=== PATIENT | female | born 1990 | race Hispanic/Latino ===

== ENCOUNTER 2016-10-09 20:25 | Emergency (ER) | payer MEDICAID ==
[2016-10-09 22:20] LABS: Basophils % (Auto) 0.4 % (0.0-1.8); Eosinophils % (Auto) 2.5 % (0.0-4.3); Hematocrit 41.9 % (30.3-42.9); Hemoglobin 13.4 gm/dl (10.1-14.3); Mean Corpuscular HGB Conc 32 % (30-34); Mean Corpuscular Hemoglobin 30 pg (28-32); Mean Corpuscular Volume 92 fl (79-97); Platelet Count 224 K/mm3 (140-440); Red Blood Count 4.54 M/mm3 (3.65-5.03); Red Cell Distribution Width 14.3 % (13.2-15.2); White Blood Count 4.3 K/mm3 (4.5-11.0)
[2016-10-09 22:26] LABS: Bacteria,Urine 1+ /HPF (Negative); Bilirubin,Urine NEG (Negative); Blood,Urine MOD (Negative); Ketones,Urine TR mg/dL (Negative); Leukocyte Esterase,Urine MOD (Negative); Mucus,Urine 3+ /HPF; Nitrite,Urine NEG (Negative); WBC,Urine < 1.0 /HPF (0.0-6.0)
[2016-10-09 22:49] LABS: Alanine Aminotransferase 12 units/L (7-56); Albumin 4.5 g/dL (3.9-5); Albumin/Globulin Ratio 1.4 %; Alkaline Phosphatase 71 units/L (35-129); Anion Gap 20 mmol/L; BUN/Creatinine Ratio 17.14; Bilirubin,Total 0.2 mg/dL (0.1-1.2); Blood Urea Nitrogen 12 mg/dL (7-17); Calcium 9.2 mg/dL (8.4-10.2); Carbon Dioxide 25 mmol/L (22-30); Chloride 105.6 mmol/L (98-107); Glucose 95 mg/dL (65-100); Lipase 33 units/L (13-60); Potassium 4.3 mmol/L (3.6-5.0); Sodium 146 mmol/L (137-145); Total Protein 7.7 g/dL (6.3-8.2)
[2016-10-10 02:13] VITALS: BP 121/71
[2016-10-10] MEDS ORDERED: ZOFRAN ODT PO ONE (03:33)
[2016-10-10] MEDS ORDERED: LIDOCAINE VISCOUS 2% PO ONE (03:33)
[2016-10-10] MEDS ORDERED: TORADOL IM ONE (03:33)
[2016-10-10] MEDS ORDERED: TESSALON PERLES PO ONE (03:33)
[2016-10-10] MEDS ORDERED: MORPHINE IM ONE (03:34)
--- NOTE | 2016-10-10 03:40 | Emergency Department Report ---
HPI - General Chief Complaint: Abdominal Pain Time Seen by Provider: 10/10/16 03:18 - HPI HPI: The patient is a 26 yo female presents for evaluation of chest pain and abdominal pain. The patient reports 2 days of generalized abdominal pain, moderate to severe, cramping in quality, exacerbated with retching, and associated with nausea, multiple episodes of nonbilious emesis, loose watery stools, and decreased appetite. The patient has a secondary complaint of nonproductive cough for the past 2 days, aching in quality bilateral chest wall pain, elicited with coughing, relieved with rest, and moderate in severity burning in quality soreness of throat, exacerbated with swallowing. The patient denies fever, chills, night sweats, dyspnea, hemoptysis, syncope, hematemesis, blood in the stool, dark tarry stool, dysuria, hematuria, flank pain, genital discharge, inability to pass flatus. 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 - Surgical History Additional Surgical History: wisdom teeth - Social History Smoking Status: Current Every Day Smoker Substance Use Type: None - Medications Home Medications: Home Medications Medication Instructions Recorded Confirmed Last Taken Type Benzonatate [Tessalon Perles] 100 mg PO Q8HR #14 capsule 10/10/16 Unknown Rx HYDROcodone/APAP 7.5-325 [[place] 1 each PO Q8HR PRN #12 tablet 10/10/16 Unknown Rx 7.5-325 mg TAB] Ibuprofen [Motrin] 800 mg PO Q8HR PRN #14 tablet 10/10/16 Unknown Rx Ondansetron [Zofran TAB] 4 mg PO Q8HR PRN #20 tablet 10/10/16 Unknown Rx ED Review of Systems ROS: Stated complaint: VOMITING/COUGH/CONGESTION Other details as noted in HPI Constitutional: denies: fever ENT: denies: throat or neck pain Respiratory: reports cough denies: shortness of breath Cardiovascular: denies: chest pain Endocrine: denies unexplained weight loss or gain Gastrointestinal: reports abdominal pain, nausea Genitourinary: denies: dysuria Musculoskeletal: denies: leg swelling Skin: denies: rash Neurological: denies: headache Hematological/Lymphatic: denies: easy bleeding or easy bruising Psych: denies sadness or hopelessness Physical Exam - Physical Exam Vital Signs: Vital Signs 10/09/16 10/10/16 21:05 02:12 Temperature 98.4 F 98.2 F Pulse Rate 67 83 Respiratory 18 12 Rate Blood Pressure 119/73 Blood Pressure 121/71 [Left] O2 Sat by Pulse 100 99 Oximetry Physical Exam: General: well-nourished, well-developed, no acute distress Head: Normocephalic, atraumatic Eyes: normal sclera ENT: Mucous membranes are pink and moist Neck: trachea midline, neck supple, No neck stiffness, no cervical adenopathy Respiratory: Breath sounds equal bilaterally, no wheezing, rales, or rhonchi Cardio: S1 and S2 present, no murmurs, rubs, gallops, capillary refill is brisk Abdomen: Normoactive bowel sounds, soft abdomen, suprapubic and bilateral lower quadrant tenderness to palpation present, no pain at McBurney's point, no rigidity, no guarding or rebound tenderness Chest WALL/Back: tenderness to palpation of the bilat upper chest wall present, no CVA tenderness with percussion Musc: No pitting edema Skin: No rash Neuro: no facial drooping, normal speech Psych: Normal affect ED Course Vital Signs 10/09/16 10/10/16 21:05 02:12 Temperature 98.4 F 98.2 F Pulse Rate 67 83 Respiratory 18 12 Rate Blood Pressure 119/73 Blood Pressure 121/71 [Left] O2 Sat by Pulse 100 99 Oximetry ED Medical Decision Making - Lab Data Result diagrams: 10/09/16 22:07 10/09/16 22:07 - Medical Decision Making The patient was seen and examined by myself. The patient is placed on a classroom monitor and continuous pulse ox. On initial evaluation, the patient was found to be in no distress. Evaluation orders are placed. The patient given Tessalon Perles for her cough, Zofran for nausea, and I'm dose of Toradol for her pain. X-ray of the chest is unremarkable. Lab results were non-concerning including WBC, hemoglobin, hematocrit, electrolytes, renal function, LFTs, lipase, neg preg test, and urinalysis. The patient was reevaluated and reported that their symptoms were markedly improved. The patient is stable for discharge with outpatient follow-up. The patient is given follow-up and return instructions. The patient expressed understanding and agreed with the plan. The patient is discharged in stable condition. Critical care attestation.: If time is entered above; I have spent that time in minutes in the direct care of this critically ill patient, excluding procedure time. ED Disposition Clinical Impression: Acute bilateral lower abdominal pain, Nausea and vomiting in adult, Acute chest pain Disposition: DISCHARGED TO HOME OR SELFCARE Is pt being admited?: No Does the pt Need Aspirin: No Condition: Stable Instructions: Abdominal Pain (ED), Chest Pain (ED), Costochondritis (ED), Gastroenteritis (ED) Referrals: PRIMARY CARE, [Primary Care Provider] - 3-5 Days Time of Disposition: 03:35
--- NOTE | 2016-10-10 07:16 | XRay Report ---
AP CHEST: HISTORY: chest pain AP view of the chest demonstrates a normal mediastinal and cardiac contour with clear lungs and normal bony and soft tissue structures. IMPRESSION: Unremarkable AP chest. No significant change since 04/24/16.
== END 2016-10-10 04:30 | disposition home or self-care (01) ==
LOC: ED 20:25
DX: R10.31 Right lower quadrant pain (principal); R10.32 Left lower quadrant pain; R11.2 Nausea with vomiting, unspecified; R07.9 Chest pain, unspecified; J45.909 Unspecified asthma, uncomplicated; F32.9 Major depressive disorder, single episode, unspecified; F17.200 Nicotine dependence, unspecified, uncomplicated
CPT/HCPCS: 36415; 71010; 80053; 81001; 81025; 83690; 85025; 96372; 99284; J1885; J2270; Q0162

== ENCOUNTER 2016-12-07 12:13 | Emergency (ER) | payer MEDICAID ==
[2016-12-07 13:12] VITALS: BP 103/63
--- NOTE | 2016-12-07 13:58 | XRay Report ---
RIGHT FOOT, 3 views: History: Pain and swelling. The bony architecture is intact. Bony alignment is normal. No soft tissue abnormalities are seen. The joint spaces appear preserved. IMPRESSION: Normal right foot.
== END 2016-12-07 14:57 | disposition left against medical advice (07) ==
LOC: ED 12:13
DX: M79.671 Pain in right foot (principal); Z53.21 Procedure and treatment not carried out due to patient leaving prior to being seen by health care provider

== ENCOUNTER 2016-12-10 16:00 | Emergency (ER) | payer MEDICAID ==
[2016-12-10 16:41] VITALS: BP 121/68
[2016-12-10] MEDS ORDERED: TORADOL IM ONE (17:49)
--- NOTE | 2016-12-10 17:54 | Emergency Department Report ---
HPI - General Chief Complaint: Extremity Injury, Lower Time Seen by Provider: 12/10/16 17:48 - HPI HPI: This is a 26-year-old female presents to the emergency department, dropped off by a uber, with complaint of a one-week history of pain to the right foot. The pain is mostly to the great toe and radiates down to the medial portion of the foot. It occurred just after the patient had 2 sprint away from a pit bull that was chasing her. She denies any known trauma such as twisting her foot and the dog never got to her. However a few hours after this incident the pain began and has been going on since. The patient was seen here at [facility] 3 days ago and had x-rays of the right foot but was unable to stay for the results or to see a physician or PA. She's been taking some ibuprofen for her discomfort without much relief. She is able to bear weight but has a lot of discomfort with doing so. She denies any significant past medical history. 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 - Surgical History Past Surgical History?: Yes Additional Surgical History: wisdom teeth - Social History Smoking Status: Former Smoker Substance Use Type: None - Medications Home Medications: Home Medications Medication Instructions Recorded Confirmed Last Taken Type traMADol [Ultram] 50 mg PO Q6HR PRN #10 tablet 12/10/16 Unknown Rx ED Review of Systems ROS: Stated complaint: RT FOOT SWELLING Other details as noted in HPI Comment: All other systems reviewed and negative Constitutional: denies: chills, fever Eyes: denies: eye pain, eye discharge, vision change ENT: denies: ear pain, throat pain Respiratory: denies: cough, shortness of breath, wheezing Cardiovascular: denies: chest pain, palpitations Gastrointestinal: denies: abdominal pain, nausea, diarrhea Genitourinary: denies: urgency, dysuria, discharge Musculoskeletal: arthralgia. denies: back pain, joint swelling Skin: denies: rash, lesions Neurological: denies: headache, weakness, paresthesias Physical Exam - Physical Exam Vital Signs: Vital Signs 12/10/16 16:38 Temperature 98.5 F Pulse Rate 92 H Respiratory 20 Rate Blood Pressure 121/68 Blood Pressure 121/68 [Left] O2 Sat by Pulse 100 Oximetry Physical Exam: GENERAL: The patient is well-developed well-nourished. HEENT: Normocephalic. Atraumatic. Extraocular motions are intact. Patient has moist mucous membranes. NECK: Supple. Trachea is midline. CHEST/LUNGS: Clear to auscultation. There is no respiratory distress noted. HEART/CARDIOVASCULAR: Regular. There is no tachycardia. There is no gallop rub or murmur. ABDOMEN: Abdomen is soft, nontender. Patient has normal bowel sounds. SKIN: Skin is warm and dry. There is no obvious edema, erythema or ecchymosis to the area of the patient's discomfort. NEURO: The patient is awake, alert, and oriented. The patient is cooperative. The patient has no focal neurologic deficits. The patient has normal speech. MUSCULOSKELETAL: Tenderness to palpation to the right great toe and medial foot but no obvious deformity. Patient has decreased range of motion of the right great toe secondary to pain. Pedal pulses +2 over 4 bilaterally. Cap refill less than 2 seconds. ED Course Vital Signs 12/10/16 16:38 Temperature 98.5 F Pulse Rate 92 H Respiratory 20 Rate Blood Pressure 121/68 Blood Pressure 121/68 [Left] O2 Sat by Pulse 100 Oximetry ED Medical Decision Making - Radiology Data Radiology results: image reviewed X-ray from 12/07/16 of the right foot was read as normal without any obvious fracture, dislocation or acute process. - Medical Decision Making 26 year old female presents with right great toe pain and pain down the right foot since running away from a dog about one week ago. It looks symmetrical with the left foot and there is no obvious swelling or redness or deformity but the patient does have tenderness to palpation and with movement. Previous x- ray from 3 days ago does not show any fracture, dislocation or any acute process and there is been no further trauma since that time. Patient will be given some crutches and a surgical sandal and referral to orthopedist or equal employment opportunity officer. - Differential Diagnosis fracture, dislocation, sprain, strain, neuropathy Critical Care Time: No Critical care attestation.: If time is entered above; I have spent that time in minutes in the direct care of this critically ill patient, excluding procedure time. ED Disposition Clinical Impression: Pain of right great toe, Right foot pain Disposition: DISCHARGED TO HOME OR SELFCARE Is pt being admited?: No Condition: Stable Instructions: Arthralgia (ED) Additional Instructions: I have given you referrals for both an orthopedist and a equal employment opportunity officer. I encourage you to see one of these physicians regarding your toe and foot pain. Return to the emergency department with any worsening of your symptoms or any acute distress. You've been prescribed a medication that is sedating. Therefore this medication cannot be mixed with alcohol, or taken prior to driving, working, or being responsible for children. Prescriptions: traMADol [Ultram] 50 mg PO Q6HR PRN #10 tablet PRN Reason: Pain Referrals: PRIMARY CARE, [Primary Care Provider] - 3-5 Days AVILA OH MD [Staff Physician] - 3-5 Days ROSALBA CENTENO MD [Staff Physician] - 3-5 Days Time of Disposition: 17:56
== END 2016-12-10 17:56 | disposition home or self-care (01) ==
LOC: ED 16:00
DX: M79.671 Pain in right foot (principal); M79.674 Pain in right toe(s); F32.9 Major depressive disorder, single episode, unspecified; J45.909 Unspecified asthma, uncomplicated; Z87.891 Personal history of nicotine dependence
CPT/HCPCS: 96372; 99283; J1885

== ENCOUNTER 2016-12-12 13:02 | Emergency (ER) | payer MEDICAID ==
[2016-12-12 14:53] VITALS: BP 115/74
[2016-12-12 15:22] LABS: Basophils % (Auto) 0.8 % (0.0-1.8); Eosinophils % (Auto) 2.8 % (0.0-4.3); Hematocrit 41.7 % (30.3-42.9); Hemoglobin 13.3 gm/dl (10.1-14.3); Mean Corpuscular HGB Conc 32 % (30-34); Mean Corpuscular Hemoglobin 30 pg (28-32); Mean Corpuscular Volume 94 fl (79-97); Platelet Count 213 K/mm3 (140-440); Red Blood Count 4.45 M/mm3 (3.65-5.03); Red Cell Distribution Width 14.5 % (13.2-15.2); White Blood Count 8.1 K/mm3 (4.5-11.0)
[2016-12-12 15:34] LABS: Alanine Aminotransferase 9 units/L (7-56); Albumin 4.2 g/dL (3.9-5); Albumin/Globulin Ratio 1.5 %; Alkaline Phosphatase 60 units/L (35-129); Anion Gap 17 mmol/L; BUN/Creatinine Ratio 12.85; Bilirubin,Total 0.2 mg/dL (0.1-1.2); Blood Urea Nitrogen 9 mg/dL (7-17); Calcium 9.2 mg/dL (8.4-10.2); Carbon Dioxide 24 mmol/L (22-30); Chloride 102.8 mmol/L (98-107); Glucose 91 mg/dL (65-100); Lipase 45 units/L (13-60); Potassium 3.9 mmol/L (3.6-5.0); Sodium 140 mmol/L (137-145)
[2016-12-12 18:36] LABS: Bacteria,Urine 1+ /HPF (Negative); Bilirubin,Urine NEG (Negative); Blood,Urine NEG (Negative); Ketones,Urine NEG (Negative); Leukocyte Esterase,Urine LG (Negative); Nitrite,Urine NEG (Negative); Protein,Urine <15 mg/dL mg/dL (Negative); Urobilinogen,Urine < 2.0 mg/dL (<2.0)
--- NOTE | 2016-12-13 14:25 | ED Elopement Review ---
ED Pt Elopement review - Results review Lab results: Laboratory Tests 12/12/16 12/12/16 12/12/16 14:56 14:56 16:26 WBC 8.1 RBC 4.45 Hgb 13.3 Hct 41.7 MCV 94 MCH 30 MCHC 32 RDW 14.5 Plt Count 213 Lymph % (Auto) 26.7 [place] % (Auto) 6.3 Eos % (Auto) 2.8 Baso % (Auto) 0.8 Lymph # 2.2 [place] # 0.5 Eos # 0.2 Baso # 0.1 Seg Neutrophils % 63.4 Seg Neutrophils # 5.1 Sodium 140 Potassium 3.9 Chloride 102.8 Carbon Dioxide 24 Anion Gap 17 BUN 9 Creatinine 0.7 Estimated GFR > 60 BUN/Creatinine Ratio 12.85 Glucose 91 Calcium 9.2 Total Bilirubin 0.2 AST 15 ALT 9 Alkaline Phosphatase 60 Total Protein 7.0 Albumin 4.2 Albumin/Globulin Ratio 1.5 Lipase 45 Urine Color Yellow Urine Turbidity Clear Urine pH 6.0 Ur Specific Hoffman 1.012 Urine Protein <15 mg/dl Urine Glucose (UA) Neg Urine Ketones Neg Urine Blood Neg Urine Nitrite Neg Urine Bilirubin Neg Urine Urobilinogen < 2.0 Ur Leukocyte Esterase Lg Urine WBC (Auto) 28.0 H Urine RBC (Auto) 3.0 U Epithel Cells (Auto) 7.0 Urine Bacteria (Auto) 1+ - Call Back decision Pt Call Back Decision: Pt to F/U with PMD
== END 2016-12-13 06:23 | disposition left against medical advice (07) ==
LOC: ED 13:02
DX: R11.10 Vomiting, unspecified (principal); R10.9 Unspecified abdominal pain; Z53.21 Procedure and treatment not carried out due to patient leaving prior to being seen by health care provider
CPT/HCPCS: 36415; 80048; 80053; 81001; 83690; 85025

== ENCOUNTER 2016-12-13 10:13 | Emergency (ER) | payer MEDICAID ==
[2016-12-13 10:27] VITALS: BP 99/70
--- NOTE | 2016-12-13 10:30 | Emergency Department Report ---
Entered by EMILEE SHANE, acting as scribe for SHAD MULTANI NP. Chief Complaint: Abdominal Pain Stated Complaint: ABD PAIN/HOT FLASHES/VOMITING Time Seen by Provider: 12/13/16 10:20 - HPI History of Present Illness: 26 y/o female presents c/o sharp abd pain that started yesterday which she came into [facility] to be treated for. Sx include ear pain, vomiting and dizziness, but pt denies burning with urination or vaginal discharge. 1 episode of vomiting today - ROS Review of Systems: +vomiting +dizziness +ear pain -burning with urination -vaginal discharge - Exam Vital Signs: Vital Signs 12/13/16 10:24 Temperature 98.4 F Pulse Rate 82 Respiratory 16 Rate Blood Pressure 99/70 O2 Sat by Pulse 97 Oximetry Physical Exam: PT is alert and appropriate. pt c/o abd burning, however abd soft and non tender. MSE screening note: Focused history and physical exam performed. Due to findings the following was ordered: reviewed labs from yesterday pt with increased wbc in urine will repeat urine today as pt denies dysuria ED Disposition for MSE Condition: Stable This documentation as recorded by the scribe,EMILEE SHANE,accurately reflects the service I personally performed and the decisions made by me,SHAD MULTANI , MANAGER BILINGUAL.
[2016-12-13 12:24] LABS: Bacteria,Urine 1+ /HPF (Negative); Bilirubin,Urine NEG (Negative); Blood,Urine NEG (Negative); Ketones,Urine NEG (Negative); Leukocyte Esterase,Urine SM (Negative); Mucus,Urine FEW /HPF; Nitrite,Urine NEG (Negative); Protein,Urine <15 mg/dL mg/dL (Negative); Urobilinogen,Urine < 2.0 mg/dL (<2.0)
--- NOTE | 2016-12-13 12:27 | Emergency Department Report ---
ED Abdominal Pain HPI - General Chief Complaint: Urogenital-Female Stated Complaint: ABD PAIN/HOT FLASHES/VOMITING Time Seen by Provider: 12/13/16 10:20 Source: patient Mode of arrival: Ambulatory Limitations: No Limitations - History of Present Illness Initial Comments: This is a 26-year-old female that presents with abdominal pain and pelvis pain since yesterday. Patient was in [facility] yesterday and eloped. Patient stated has kids at home and was unable to wait. Patient stated has diffuse abdomen pain with nonradiating or point tenderness. Patient also complaining of pelvics pain. Patient stated nauseous as well. Patient describes pain as aching and stabbing. Denies any discharge or new sexual partner. LMP that 2 days ago. Patient rates pain as 10 out of 10. Denies any past medical history. Patient stated has ate this morning and vomited everything out. Is unable to keep antibiotic mouth since yesterday. Vomited is consistent of food and fluid. Based denies any blood during vomiting episodes. Patient also states that she has burning while urinating. Denies frequency. Denies any foul odor smell. Denies shortness of breath or chest pain. Denies hematuria. Denies any diarrhea. Patient does not seem toxic or ill appearance. No signs of any distress. Patient denies any new or recent travels. MD Complaint: abdominal pain, other (pelvis pain) -: Gradual, days(s) (1) Location: diffuse Radiation: none Migration to: no migration Severity: moderate Severity scale (0 -10): 10 Quality: cramping, aching Consistency: constant Improves With: nothing Associated Symptoms: nausea, vomiting. denies: diarrhea, fever, chills, constipation, dysuria, hematemesis, hematochezia, melena, hematuria, anorexia, syncope - Related Data LMP Date: 12/11/16 Previous Rx's Medication Instructions Recorded Last Taken Type traMADol [Ultram] 50 mg PO Q6HR PRN #10 tablet 12/10/16 Unknown Rx Naproxen [Naprosyn TAB] 500 mg PO BID 5 Days 12/13/16 Unknown Rx Nitrofurantoin [place]/M-Cryst 100 mg PO Q12HR 5 Days 12/13/16 Unknown Rx [Macrobid CAP] Allergies Allergy/AdvReac Type Severity Reaction Status Date / Time amoxicillin Allergy Unknown Verified 12/13/16 10:29 Penicillins Allergy Unknown Verified 12/13/16 10:29 sulfamethoxazole Allergy Unknown Verified 12/13/16 10:29 [From Bactrim] trimethoprim [From Bactrim] Allergy Unknown Verified 12/13/16 10:29 ED Review of Systems ROS: Stated complaint: ABD PAIN/HOT FLASHES/VOMITING Other details as noted in HPI Constitutional: denies: chills, fever Eyes: denies: eye pain, eye discharge, vision change ENT: denies: ear pain, throat pain Respiratory: denies: cough, shortness of breath, wheezing Cardiovascular: denies: chest pain, palpitations Endocrine: no symptoms reported Gastrointestinal: abdominal pain, nausea, vomiting. 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 - Surgical History Additional Surgical History: wisdom teeth - Social History Smoking Status: Former Smoker Substance Use Type: None - Medications Home Medications: Home Medications Medication Instructions Recorded Confirmed Last Taken Type traMADol [Ultram] 50 mg PO Q6HR PRN #10 tablet 12/10/16 Unknown Rx Naproxen [Naprosyn TAB] 500 mg PO BID 5 Days 12/13/16 Unknown Rx Nitrofurantoin [place]/M-Cryst 100 mg PO Q12HR 5 Days 12/13/16 Unknown Rx [Macrobid CAP] ED Physical Exam - General Limitations: No Limitations General appearance: alert, in no apparent distress - Head Head exam: Present: atraumatic, normocephalic - Eye Eye exam: Present: normal appearance - ENT ENT exam: Present: mucous membranes moist - Neck Neck exam: Present: normal inspection - Respiratory Respiratory exam: Present: normal lung sounds bilaterally. Absent: respiratory distress - Cardiovascular Cardiovascular Exam: Present: regular rate, normal rhythm. Absent: systolic murmur, diastolic murmur, rubs, gallop - GI/Abdominal GI/Abdominal exam: Present: soft, tenderness, normal bowel sounds. Absent: distended, guarding, rebound, rigid, diminished bowel sounds, hyperactive bowel sounds, hypoactive bowel sounds, organomegaly, bruit - External exam: Present: normal external exam. Absent: erythema, swelling, lesions, lacerations, ecchymosis, bleeding Speculum exam: Present: normal speculum exam. Absent: erythema, vaginal discharge, cervical discharge, vaginal bleeding, laceration Bi-manual exam: Present: normal bi-manual exam. Absent: cervical motion tendernes - Extremities Exam Extremities exam: Present: normal inspection, full ROM, normal capillary refill. Absent: tenderness - Back Exam Back exam: Present: normal inspection, full ROM. Absent: tenderness, CVA tenderness (R), CVA tenderness (L) - Neurological Exam Neurological exam: Present: alert, oriented X3, CN II-XII intact, normal gait - Psychiatric Psychiatric exam: Present: normal affect, normal mood. Absent: depressed, agitated, anxious - Skin Skin exam: Present: warm, dry, intact, normal color. Absent: rash ED Course Vital Signs 12/13/16 10:24 Temperature 98.4 F Pulse Rate 82 Respiratory 16 Rate Blood Pressure 99/70 O2 Sat by Pulse 97 Oximetry - Reevaluation(s) Reevaluation #1: 12/13/16 12:40 Patient was here yesterday and CBC chemistry and urinalysis was obtained. 12/13/16 14:26 Patient is resting with no signs of distress. Patient stated pain is currently a 2 out of 10. Reevaluation #2: 12/13/16 14:26 Dr. Randall aware of patient and CT findings. Called Dr. Velazquez ([employer]) computer numerical control grinder about the patient. Reevaluation #3: 12/13/16 16:42 Patient is doing well. No signs of distress. Patient stated pain is subsided with 0/10. ED Medical Decision Making - Medical Decision Making Ed course: 26-year-old female that presents with vomiting, abdominal pain, pelvis pain. 1- Zofran IV. 2- CT with contrast of abdomen and pelvis: 3.3 cm left ovarian cyst. Medium pelvic ascites. Dr. Randall was notified of patient and CT results. Dr. Velazquez ([employer] ) computer numerical control grinder was notified. Dr. Velazquez stated to order CA 125 and Ultrasound/Dr. Randall agreed with workup. 3- Toradol IM 4- hematology, chemistry, urinalysis was obtained less than 24 hours 5- bimanual and speculum exam patient tolerated well. Negative cervical motion tenderness. 6- Ultrasound abdominal: all 4 quads negative of ascites. Ultrasound transabdominal: left ovarian cyst with free fluid in the pelvis Ultrasound transvaginal: left ovarian cyst with free fluid in the pelvis 7- Dr. Wilson and Dr. Velazquez aware of ultrasound results. Stated follow-up with [employer]. 8-patient is aware of CT findings and ultrasound. Stated will follow-up with Dr. Flo esparza. 9- I instructed the patient to follow-up in 5-7 days for CA 125 lab result. 10-patient discharged with Keflex for urinary tract infection. I instructed the patient to initiate antibiotics as prescribed. 10-time of discharge the patient wasn't toxic or ill appearance. No signs of distress. Critical care attestation.: If time is entered above; I have spent that time in minutes in the direct care of this critically ill patient, excluding procedure time. ED Disposition Clinical Impression: UTI (urinary tract infection) Qualifiers: Urinary tract infection type: site unspecified Hematuria presence: without hematuria Qualified Code(s): N39.0 - Urinary tract infection, site not specified Ovarian cyst Qualifiers: Laterality: left Qualified Code(s): N83.202 - Unspecified ovarian cyst, left side Disposition: DISCHARGED TO HOME OR SELFCARE Is pt being admited?: No Does the pt Need Aspirin: No Condition: Stable Instructions: Ovarian Cyst (ED), Naproxen (By mouth), Urinary Tract Infection in Women (ED) Additional Instructions: Follow-up with Dr. Velazquez or any [employer] [place]IA. Report back if symptoms worsen or unbearable to the emergency department. Finish antibiotic course as prescribed. Prescriptions: Naproxen [Naprosyn TAB] 500 mg PO BID 5 Days Nitrofurantoin Windsor/M-Cryst [Macrobid CAP] 100 mg PO Q12HR 5 Days Referrals: SUZAN VELAZQUEZ MD [Staff Physician] - 3-5 Days PRIMARY CARE, [Primary Care Provider] - [place] Forms: Work/School Release Form(ED)
[2016-12-13] MEDS: ZOFRAN IV ONE (12:56)
[2016-12-13] MEDS: LACTATED RINGERS 1,000 ML IV ONE (12:56)
--- NOTE | 2016-12-13 13:53 | Cat Scan Report ---
CT SCAN OF THE ABDOMEN AND PELVIS WITH CONTRAST: HISTORY: Abdominal pain. TECHNIQUE: Helical CT in 1.25mm intervals following IV contrast. Sagittal and coronal reconstructions. FINDINGS: A 3.3 cm left ovarian cyst is identified. The uterus and right adnexa are unremarkable. There is medium free pelvic fluid. The liver is normal in size and is without focal defect. No gallstones or biliary dilatation are noted. The spleen and pancreas demonstrate a normal size and attenuation with no evidence of abnormal mass. The kidneys are normal in size and position with no evidence of hydronephrosis or mass. The adrenal glands are normal. There is no intestinal obstruction or ascites. Normal appendix. The abdominal aorta is normal. No abnormalities are identified within the retroperitoneum or mesentery. There is no evidence of peritoneal air. There is no evidence of any abnormal masses or fluid collections within the pelvis. No adenopathy is identified. The bladder is normal. IMPRESSION: 3.3 cm left ovarian cyst. Medium pelvic ascites.
[2016-12-13] MEDS: TORADOL IM ONE ×2 (14:14→14:15)
--- NOTE | 2016-12-13 16:30 | Ultrasound Report ---
Transabdominal and transvaginal pelvic ultrasound. History: Pelvic pain. Findings: The uterus is normal in size and configuration with no focal abnormalities. The endometrial echo measures 4.3 mm in thickness. The right ovary is normal. There is a 2.9 cm in diameter cyst in the left ovary. There is a small volume of free fluid within the cul-de-sac. Impression: Left ovarian cyst with free fluid in the pelvis.
--- NOTE | 2016-12-13 16:32 | Ultrasound Report ---
Limited abdominal ultrasound for assessment of ascites. Findings: All 4 quadrants were examined. There is no evidence of ascites.
[2016-12-13] MEDS: MOTRIN PO ONE (16:55)
== END 2016-12-13 17:06 | disposition home or self-care (01) ==
LOC: ED 10:13
DX: N39.0 Urinary tract infection, site not specified (principal); N83.202 Unspecified ovarian cyst, left side; F32.9 Major depressive disorder, single episode, unspecified; J45.909 Unspecified asthma, uncomplicated; Z87.891 Personal history of nicotine dependence; Z88.0 Allergy status to penicillin; Z88.2 Allergy status to sulfonamides; Z88.1 Allergy status to other antibiotic agents
CPT/HCPCS: 36415; 74177; 76705; 76830; 76856; 81001; 81025; 86304; 87086; 87210; 87591; 96361; 96372; 96374; 99284; J1885; J2405; J7120; Q9967

== ENCOUNTER 2016-12-15 15:39 | Emergency (ER) | payer MEDICAID ==
[2016-12-15 15:54] VITALS: BP 105/64
[2016-12-15 16:12] LABS: Basophils % (Auto) 0.7 % (0.0-1.8); Eosinophils % (Auto) 1.9 % (0.0-4.3); Hematocrit 38.7 % (30.3-42.9); Hemoglobin 12.9 gm/dl (10.1-14.3); Mean Corpuscular HGB Conc 33 % (30-34); Mean Corpuscular Hemoglobin 31 pg (28-32); Mean Corpuscular Volume 93 fl (79-97); Platelet Count 175 K/mm3 (140-440); Red Blood Count 4.19 M/mm3 (3.65-5.03); Red Cell Distribution Width 13.8 % (13.2-15.2); White Blood Count 6.1 K/mm3 (4.5-11.0)
[2016-12-15 16:31] LABS: Alanine Aminotransferase 9 units/L (7-56); Albumin 4.1 g/dL (3.9-5); Albumin/Globulin Ratio 1.5 %; Alkaline Phosphatase 53 units/L (35-129); Anion Gap 19 mmol/L; BUN/Creatinine Ratio 15.71; Bilirubin,Total 0.3 mg/dL (0.1-1.2); Blood Urea Nitrogen 11 mg/dL (7-17); Carbon Dioxide 23 mmol/L (22-30); Chloride 101.1 mmol/L (98-107); Glucose 73 mg/dL (65-100); Lipase 17 units/L (13-60); Potassium 3.9 mmol/L (3.6-5.0); Sodium 139 mmol/L (137-145); Total Protein 6.9 g/dL (6.3-8.2)
== END 2016-12-15 16:42 | disposition left against medical advice (07) ==
LOC: ED 15:39
DX: N93.8 Other specified abnormal uterine and vaginal bleeding (principal); R11.2 Nausea with vomiting, unspecified; G43.909 Migraine, unspecified, not intractable, without status migrainosus; R30.0 Dysuria; Z53.21 Procedure and treatment not carried out due to patient leaving prior to being seen by health care provider
CPT/HCPCS: 36415; 80053; 83690; 85025

== ENCOUNTER 2016-12-16 12:57 | Emergency (ER) | payer MEDICAID ==
[2016-12-16 13:31] LABS: Basophils % (Auto) 0.9 % (0.0-1.8); Eosinophils % (Auto) 3.6 % (0.0-4.3); Hemoglobin 13.8 gm/dl (10.1-14.3); Mean Corpuscular HGB Conc 34 % (30-34); Mean Corpuscular Hemoglobin 31 pg (28-32); Mean Corpuscular Volume 93 fl (79-97); Platelet Count 195 K/mm3 (140-440); Red Blood Count 4.42 M/mm3 (3.65-5.03); Red Cell Distribution Width 14.2 % (13.2-15.2); White Blood Count 5.8 K/mm3 (4.5-11.0)
[2016-12-16 13:50] LABS: Alanine Aminotransferase 9 units/L (7-56); Albumin 4.4 g/dL (3.9-5); Albumin/Globulin Ratio 1.6 %; Alkaline Phosphatase 56 units/L (35-129); Anion Gap 17 mmol/L; BUN/Creatinine Ratio 14.28; Bilirubin,Total 0.3 mg/dL (0.1-1.2); Blood Urea Nitrogen 10 mg/dL (7-17); Calcium 9.7 mg/dL (8.4-10.2); Carbon Dioxide 26 mmol/L (22-30); Chloride 102.2 mmol/L (98-107); Glucose 95 mg/dL (65-100); Lipase 25 units/L (13-60); Sodium 140 mmol/L (137-145); Total Protein 7.2 g/dL (6.3-8.2)
[2016-12-16 14:00] LABS: Potassium 4.8 mmol/L (3.6-5.0)
[2016-12-16 18:53] LABS: Bacteria,Urine 2+ /HPF (Negative); Bilirubin,Urine NEG (Negative); Blood,Urine SM (Negative); Ketones,Urine NEG (Negative); Leukocyte Esterase,Urine LG (Negative); Nitrite,Urine NEG (Negative); Urobilinogen,Urine < 2.0 mg/dL (<2.0)
[2016-12-16 18:54] LABS: WBC,Urine > 182.0 /HPF (0.0-6.0)
[2016-12-16] MEDS ORDERED: ZOFRAN IV ONE (21:33)
[2016-12-16] MEDS ORDERED: MORPHINE IV ONE (21:33)
[2016-12-16] MEDS ORDERED: NACL 0.9% 1000 ML 1,000 ML IV ONE (21:33)
--- NOTE | 2016-12-16 22:18 | Ultrasound Report ---
FINAL REPORT EXAM: US TRANSVAGINAL HISTORY: pain TECHNIQUE: Transabdominal and transvaginal sonography of the pelvis. Duplex Doppler performed. PRIORS: None. FINDINGS: The uterus measures 8.5 x 4.7 x 4.4 cm and appears grossly unremarkable. The endometrial stripe is within normal limits and measures 10 mm in AP dimension. Both ovaries demonstrate follicular change measuring up to 2 cm in the left ovary. The right ovary measures 2.5 x 1.8 x 2.3 cm. The left ovary measures 3.4 x 3.0 x 3.5 cm. Duplex Doppler shows appropriate blood flow present in the ovaries bilaterally. Small-moderate amount of mildly complex free fluid in the pelvis, including lobular and heterogeneously hypoechoic focus in the right adnexa adjacent to the right ovary measuring approximately 1.3 cm possibly representing coagulation products. No other adnexal masses. IMPRESSION: 1. Findings compatible with functional cystic change in the bilateral ovaries and possible sequelae of ovarian follicle or cyst rupture, including small-moderate amount of mildly complex or possibly hemorrhagic free pelvic fluid. 2. Otherwise, unremarkable.
--- NOTE | 2016-12-16 22:19 | Ultrasound Report ---
FINAL REPORT EXAM: US PELVIC COMPLETE HISTORY: h/o ruptured cyst TECHNIQUE: Transabdominal and transvaginal sonography of the pelvis. Duplex Doppler was performed. PRIORS: None. FINDINGS: The uterus measures 8.5 x 4.7 x 4.4 cm and appears grossly unremarkable. The endometrial stripe is within normal limits and measures 10 mm in AP dimension. Both ovaries demonstrate follicular change measuring up to 2 cm in the left ovary. The right ovary measures 2.5 x 1.8 x 2.3 cm. The left ovary measures 3.4 x 3.0 x 3.5 cm. Duplex Doppler shows appropriate blood flow present in the ovaries bilaterally. Small-moderate amount of mildly complex free fluid in the pelvis, including lobular and heterogeneously hypoechoic focus in the right adnexa adjacent to the right ovary measuring approximately 1.3 cm possibly representing coagulation products. No other adnexal masses. IMPRESSION: 1. Findings compatible with functional cystic change in the bilateral ovaries and possible sequelae of ovarian follicle or cyst rupture, including small-moderate amount of mildly complex or possibly hemorrhagic free pelvic fluid. 2. Otherwise, unremarkable.
--- NOTE | 2016-12-16 23:13 | Emergency Department Report ---
ED Abdominal Pain HPI - General Chief Complaint: Abdominal Pain Stated Complaint: POSS CYST ON OVARY Time Seen by Provider: 12/16/16 20:53 Source: patient Mode of arrival: Ambulatory Limitations: No Limitations - History of Present Illness Initial Comments: This is a 26-year-old female that presents with abdominal pain and pelvis pain x 4 days. Patient was seen at [facility] ER on 2016 and diagnosed with ruptured ovarian cyst and UTI and discharged home on Naprosyn and Macrobid. Patient has not filled her Macrobid and states that the Naprosyn is not helping with her pain. Patient also complaining of nausea and vomiting x 2 days. Patient describes pain as 10/10 constant aching and stabbing pain. Denies vaginal bleeding or discharge. LMP was 12/11/2016. Denies any past medical history. Patient also states that she has burning while urinating. Denies increased urinary frequency or urgency. Denies fever, chills, shortness of breath or chest pain. Denies hematuria or hematemesis. Denies any diarrhea. MD Complaint: abdominal pain Onset/Timin -: days(s) Location: RLQ, suprapubic Radiation: none Migration to: no migration Severity: severe Severity scale (0 -10): 10 Quality: stabbing, aching Consistency: constant Improves With: nothing Context: other (recent diagnosis of ruptured ovarian cyst) Associated Symptoms: nausea, vomiting, dysuria. denies: diarrhea, fever, chills , constipation, hematemesis, hematochezia, melena, hematuria Treatments Prior to Arrival: NSAIDs - Related Data LMP Date: 12/11/16 Previous Rx's Medication Instructions Recorded Last Taken Type traMADol [Ultram] 50 mg PO Q6HR PRN #10 tablet 12/10/16 Unknown Rx Naproxen [Naprosyn TAB] 500 mg PO BID 5 Days 12/13/16 Unknown Rx Nitrofurantoin [place]/M-Cryst 100 mg PO Q12HR 5 Days 12/13/16 Unknown Rx [Macrobid CAP] HYDROcodone/APAP 7.5-325 [[place] 1 each PO Q6HR PRN #20 tablet 12/16/16 Unknown Rx 7.5/325] Levofloxacin [Levaquin TAB] 500 mg PO QDAY #5 tablet 12/16/16 Unknown Rx Ondansetron [Zofran Odt] 4 mg PO Q8HR #20 tab.rapdis 12/16/16 Unknown Rx Allergies Allergy/AdvReac Type Severity Reaction Status Date / Time amoxicillin Allergy Unknown Verified 12/13/16 10:29 Penicillins Allergy Unknown Verified 12/13/16 10:29 sulfamethoxazole Allergy Unknown Verified 12/13/16 10:29 [From Bactrim] trimethoprim [From Bactrim] Allergy Unknown Verified 12/13/16 10:29 ED Review of Systems ROS: Stated complaint: POSS CYST ON OVARY Other details as noted in HPI Constitutional: denies: chills, fever, malaise Eyes: denies: eye pain ENT: denies: ear pain, throat pain, congestion Respiratory: denies: cough, shortness of breath, wheezing Cardiovascular: denies: chest pain, palpitations Endocrine: no symptoms reported Gastrointestinal: abdominal pain, nausea, vomiting. denies: diarrhea, constipation Genitourinary: dysuria. denies: urgency, frequency, hematuria, discharge Neurological: weakness. 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 - Surgical History Additional Surgical History: wisdom teeth - Social History Smoking Status: Former Smoker Substance Use Type: None - Medications Home Medications: Home Medications Medication Instructions Recorded Confirmed Last Taken Type traMADol [Ultram] 50 mg PO Q6HR PRN #10 tablet 12/10/16 Unknown Rx Naproxen [Naprosyn TAB] 500 mg PO BID 5 Days 12/13/16 Unknown Rx Nitrofurantoin [place]/M-Cryst 100 mg PO Q12HR 5 Days 12/13/16 Unknown Rx [Macrobid CAP] HYDROcodone/APAP 7.5-325 [[place] 1 each PO Q6HR PRN #20 tablet 12/16/16 Unknown Rx 7.5/325] Levofloxacin [Levaquin TAB] 500 mg PO QDAY #5 tablet 12/16/16 Unknown Rx Ondansetron [Zofran Odt] 4 mg PO Q8HR #20 tab.rapdis 12/16/16 Unknown Rx ED Physical Exam - General Limitations: No Limitations General appearance: alert, in distress - Head Head exam: Present: atraumatic, normocephalic - Eye Eye exam: Present: normal appearance - ENT ENT exam: Present: normal exam, mucous membranes moist - Neck Neck exam: Present: normal inspection, full ROM. Absent: tenderness, lymphadenopathy - Respiratory Respiratory exam: Present: normal lung sounds bilaterally. Absent: respiratory distress, wheezes, rales, rhonchi - Cardiovascular Cardiovascular Exam: Present: regular rate, normal rhythm. Absent: systolic murmur, diastolic murmur, rubs, gallop - GI/Abdominal GI/Abdominal exam: Present: soft, tenderness (right lower quadrant and suprapubic region), normal bowel sounds. Absent: distended, guarding, rebound, rigid - Rectal Rectal exam: Present: deferred - Extremities Exam Extremities exam: Present: normal inspection, full ROM - Back Exam Back exam: Present: normal inspection, full ROM, CVA tenderness (R). Absent: CVA tenderness (L) - Neurological Exam Neurological exam: Present: alert, oriented X3, normal gait - Psychiatric Psychiatric exam: Present: normal affect, normal mood - Skin Skin exam: Present: warm, dry, intact ED Course Vital Signs 12/16/16 12/16/16 13:08 18:15 Temperature 99.4 F 98 F Pulse Rate 75 79 Respiratory 18 18 Rate Blood Pressure 114/69 111/63 O2 Sat by Pulse 100 Oximetry ED Medical Decision Making - Lab Data Result diagrams: 12/16/16 13:18 12/16/16 13:18 Vital Signs 12/16/16 12/16/16 13:08 18:15 Temperature 99.4 F 98 F Pulse Rate 75 79 Respiratory 18 18 Rate Blood Pressure 114/69 111/63 O2 Sat by Pulse 100 Oximetry Lab Results 12/16/16 12/16/16 12/16/16 Range/Units 13:18 13:18 18:38 WBC 5.8 (4.5-11.0) K/mm3 RBC 4.42 (3.65-5.03) M/mm3 Hgb 13.8 (10.1-14.3) gm/dl Hct 41.0 (30.3-42.9) % MCV 93 (79-97) fl MCH 31 (28-32) pg MCHC 34 (30-34) % RDW 14.2 (13.2-15.2) % Plt Count 195 (140-440) K/mm3 Lymph % (Auto) 30.6 (13.4-35.0) % [place] % (Auto) 7.7 H (0.0-7.3) % Eos % (Auto) 3.6 (0.0-4.3) % Baso % (Auto) 0.9 (0.0-1.8) % Lymph # 1.8 (1.2-5.4) K/mm3 [place] # 0.4 (0.0-0.8) K/mm3 Eos # 0.2 (0.0-0.4) K/mm3 Baso # 0.0 (0.0-0.1) K/mm3 Seg Neutrophils % 57.2 (40.0-70.0) % Seg Neutrophils # 3.3 (1.8-7.7) K/mm3 Sodium 140 (137-145) mmol/L Potassium 4.8 D (3.6-5.0) mmol/L Chloride 102.2 (98-107) mmol/L Carbon Dioxide 26 (22-30) mmol/L Anion Gap 17 mmol/L BUN 10 (7-17) mg/dL Creatinine 0.7 (0.7-1.2) mg/dL Estimated GFR > 60 ml/min BUN/Creatinine Ratio 14.28 % Glucose 95 (65-100) mg/dL Calcium 9.7 (8.4-10.2) mg/dL Total Bilirubin 0.3 (0.1-1.2) mg/dL AST 16 (5-40) units/L ALT 9 (7-56) units/L Alkaline Phosphatase 56 (35-129) units/L Total Protein 7.2 (6.3-8.2) g/dL Albumin 4.4 (3.9-5) g/dL Albumin/Globulin Ratio 1.6 % Lipase 25 (13-60) units/L Urine Color Yellow (Yellow) Urine Turbidity Turbid (Clear) Urine pH 7.0 (5.0-7.0) Ur Specific [place] 1.013 (1.003-1.030) Urine Protein 30 mg/dl (Negative) mg/dL Urine Glucose (UA) Neg (Negative) mg/dL Urine Ketones Neg (Negative) mg/dL Urine Blood Sm (Negative) Urine Nitrite Neg (Negative) Ur Reducing Substances Not Reportable Urine Bilirubin Neg (Negative) Urine Ictotest Not Reportable Urine Urobilinogen < 2.0 (<2.0) mg/dL Ur Leukocyte Esterase Lg (Negative) Urine WBC (Auto) > 182.0 H (0.0-6.0) /HPF Urine RBC (Auto) 53.0 (0.0-6.0) /HPF U Epithel Cells (Auto) 59.0 H (0-13.0) /HPF Urine Bacteria (Auto) 2+ (Negative) /HPF Urine WBC Clumps 3+ /HPF Urine HCG, Qual Negative (Negative) - Radiology Data Radiology results: report reviewed EXAM: US PELVIC COMPLETE HISTORY: h/o ruptured cyst TECHNIQUE: Transabdominal and transvaginal sonography of the pelvis. Duplex Doppler was performed. PRIORS: None. FINDINGS: The uterus measures 8.5 x 4.7 x 4.4 cm and appears grossly unremarkable. The endometrial stripe is within normal limits and measures 10 mm in AP dimension. Both ovaries demonstrate follicular change measuring up to 2 cm in the left ovary. The right ovary measures 2.5 x 1.8 x 2.3 cm. The left ovary measures 3.4 x 3.0 x 3.5 cm. Duplex Doppler shows appropriate blood flow present in the ovaries bilaterally. Small-moderate amount of mildly complex free fluid in the pelvis, including lobular and heterogeneously hypoechoic focus in the right adnexa adjacent to the right ovary measuring approximately 1.3 cm possibly representing coagulation products. No other adnexal masses. IMPRESSION: 1. Findings compatible with functional cystic change in the bilateral ovaries and possible sequelae of ovarian follicle or cyst rupture, including small-moderate amount of mildly complex or possibly hemorrhagic free pelvic fluid. 2. Otherwise, unremarkable. - Medical Decision Making 26-year-old female presents today with lower abdominal and pelvic pain 4 days. Patient was diagnosed with a ruptured ovarian cyst and UTI 4 days ago. Patient has not taken her antibiotics. Her lab results are essentially negative. Her urinalysis reveals small blood, large leukocyte esterase, elevated urine WBC. Her ultrasound results reveals findings compatible with functional cystic changes in the bilateral ovaries and possible sequela of ovarian follicle or cyst rupture, including [id number] amount of mildly complex or possibly hemorrhagic free pelvic fluid. Consulted with Dr. Summers. Patient reports pain control post medication and IV fluids. Patient is in no acute distress at this time. She will be discharged home and is encouraged to follow up with a primary care provider. She will be sent home on [place], Zofran and Levaquin and is encouraged to return to the emergency room for any worsening symptoms. Critical care attestation.: If time is entered above; I have spent that time in minutes in the direct care of this critically ill patient, excluding procedure time. ED Disposition Clinical Impression: Ruptured ovarian cyst UTI (urinary tract infection) Qualifiers: Urinary tract infection type: acute cystitis Hematuria presence: with hematuria Qualified Code(s): N30.01 - Acute cystitis with hematuria Disposition: DISCHARGED TO HOME OR SELFCARE Is pt being admited?: No Does the pt Need Aspirin: No Condition: Stable Instructions: Abdominal Pain (ED), Ovarian Cyst (ED), Urinary Tract Infection in Women (ED) Additional Instructions: Follow-up with primary care provider. Return to the emergency department if symptoms worsen. Prescriptions: HYDROcodone/APAP 7.5-325 [[place] 7.5/325] 1 each PO Q6HR PRN #20 tablet PRN Reason: Pain Levofloxacin [Levaquin TAB] 500 mg PO QDAY #5 tablet Ondansetron [Zofran Odt] 4 mg PO Q8HR #20 tab.vilma Referrals: PRIMARY CAREMD [Primary Care Provider] - 3-5 Days [facility] [Outside] - 3-5 Days AUDELIA NORIEGA MD [Staff Physician] - 3-5 Days Forms: Work/School Release Form(ED), Accompanied Note Time of Disposition: 23:19
[2016-12-16 23:21] VITALS: BP 125/78
--- NOTE | 2016-12-18 09:26 | ED Elopement Review ---
ED Pt Elopement review - Results review Lab results: Laboratory Tests 12/16/16 12/16/16 12/16/16 13:18 13:18 18:38 WBC 5.8 RBC 4.42 Hgb 13.8 Hct 41.0 MCV 93 MCH 31 MCHC 34 RDW 14.2 Plt Count 195 Lymph % (Auto) 30.6 [place] % (Auto) 7.7 H Eos % (Auto) 3.6 Baso % (Auto) 0.9 Lymph # 1.8 [place] # 0.4 Eos # 0.2 Baso # 0.0 Seg Neutrophils % 57.2 Seg Neutrophils # 3.3 Sodium 140 Potassium 4.8 D Chloride 102.2 Carbon Dioxide 26 Anion Gap 17 BUN 10 Creatinine 0.7 Estimated GFR > 60 BUN/Creatinine Ratio 14.28 Glucose 95 Calcium 9.7 Total Bilirubin 0.3 AST 16 ALT 9 Alkaline Phosphatase 56 Total Protein 7.2 Albumin 4.4 Albumin/Globulin Ratio 1.6 Lipase 25 Urine Color Yellow Urine Turbidity Turbid Urine pH 7.0 Ur Specific [place] 1.013 Urine Protein 30 mg/dl Urine Glucose (UA) Neg Urine Ketones Neg Urine Blood Sm Urine Nitrite Neg Ur Reducing Substances Not Reportable Urine Bilirubin Neg Urine Ictotest Not Reportable Urine Urobilinogen < 2.0 Ur Leukocyte Esterase Lg Urine WBC (Auto) > 182.0 H Urine RBC (Auto) 53.0 U Epithel Cells (Auto) 59.0 H Urine Bacteria (Auto) 2+ Urine WBC Clumps 3+ Urine HCG, Qual Negative - Call Back decision Pt Call Back Decision: Pt to F/U with PMD (UTI)
== END 2016-12-16 23:45 | disposition home or self-care (01) ==
LOC: ED 12:57
DX: N30.01 Acute cystitis with hematuria (principal); N83.209 Unspecified ovarian cyst, unspecified side; F32.9 Major depressive disorder, single episode, unspecified; J45.909 Unspecified asthma, uncomplicated; Z87.891 Personal history of nicotine dependence; Z88.0 Allergy status to penicillin; Z88.1 Allergy status to other antibiotic agents; Z88.8 Allergy status to other drugs, medicaments and biological substances
CPT/HCPCS: 36415; 76830; 76856; 80053; 81001; 81025; 83690; 85025; 96361; 96374; 96375; 99284; J2270; J2405; J7030

== ENCOUNTER 2017-01-03 19:01 | Emergency (ER) | payer MEDICAID ==
[2017-01-03 19:26] VITALS: BP 99/64
[2017-01-03 20:09] LABS: Hematocrit 40.8 % (30.3-42.9); Hemoglobin 13.5 gm/dl (10.1-14.3); Mean Corpuscular HGB Conc 33 % (30-34); Mean Corpuscular Hemoglobin 31 pg (28-32); Mean Corpuscular Volume 93 fl (79-97); Platelet Count 197 K/mm3 (140-440); Red Blood Count 4.41 M/mm3 (3.65-5.03); Red Cell Distribution Width 14.2 % (13.2-15.2); White Blood Count 6.7 K/mm3 (4.5-11.0)
[2017-01-03 20:16] LABS: Anion Gap 16 mmol/L; BUN/Creatinine Ratio 18.33; Blood Urea Nitrogen 11 mg/dL (7-17); Calcium 9.2 mg/dL (8.4-10.2); Carbon Dioxide 24 mmol/L (22-30); Chloride 104.3 mmol/L (98-107); Glucose 89 mg/dL (65-100); Potassium 4.2 mmol/L (3.6-5.0); Sodium 140 mmol/L (137-145)
--- NOTE | 2017-01-05 19:49 | ED Elopement Review ---
ED Pt Elopement review - Results review Lab results: Laboratory Tests 01/03/17 01/03/17 19:38 19:38 WBC 6.7 RBC 4.41 Hgb 13.5 Hct 40.8 MCV 93 MCH 31 MCHC 33 RDW 14.2 Plt Count 197 Sodium 140 Potassium 4.2 Chloride 104.3 Carbon Dioxide 24 Anion Gap 16 BUN 11 Creatinine 0.6 L Estimated GFR > 60 BUN/Creatinine Ratio 18.33 Glucose 89 Calcium 9.2 - Call Back decision Pt Call Back Decision: No action required
== END 2017-01-04 03:45 | disposition left against medical advice (07) ==
LOC: ED 19:01
DX: R10.31 Right lower quadrant pain (principal); R51 Headache; R11.0 Nausea; R05 Cough; Z53.21 Procedure and treatment not carried out due to patient leaving prior to being seen by health care provider
CPT/HCPCS: 36415; 80048; 85027

== ENCOUNTER 2017-01-04 11:09 | Emergency (ER) | payer MEDICAID ==
[2017-01-04 12:01] VITALS: BP 92/64
[2017-01-04 12:15] LABS: Basophils % (Auto) 0.7 % (0.0-1.8); Eosinophils % (Auto) 3.8 % (0.0-4.3); Hematocrit 41.6 % (30.3-42.9); Hemoglobin 13.7 gm/dl (10.1-14.3); Mean Corpuscular HGB Conc 33 % (30-34); Mean Corpuscular Hemoglobin 31 pg (28-32); Mean Corpuscular Volume 93 fl (79-97); Platelet Count 205 K/mm3 (140-440); Red Blood Count 4.48 M/mm3 (3.65-5.03); Red Cell Distribution Width 13.8 % (13.2-15.2); White Blood Count 6.4 K/mm3 (4.5-11.0)
[2017-01-04 12:46] LABS: Alanine Aminotransferase 13 units/L (7-56); Albumin 4.7 g/dL (3.9-5); Alkaline Phosphatase 52 units/L (35-129); Anion Gap 18 mmol/L; Blood Urea Nitrogen 9 mg/dL (7-17); Calcium 9.5 mg/dL (8.4-10.2); Carbon Dioxide 25 mmol/L (22-30); Chloride 105.3 mmol/L (98-107); Glucose 88 mg/dL (65-100); Lipase 30 units/L (13-60); Sodium 143 mmol/L (137-145)
[2017-01-04 13:07] LABS: Potassium 5.1 mmol/L (3.6-5.0)
--- NOTE | 2017-01-04 15:20 | Ultrasound Report ---
Pelvic ultrasound: Menorrhagia, pain Transabdominal imaging demonstrates an anteverted uterus measuring 3.8 x 6.1 x 7.4 cm. The myometrium is homogeneous. The endometrium is also homogeneous and has a thickness of 6.5 mm. There is a small volume of free echolucent cul-de-sac fluid. The left ovary measures 5.1 cm and contains what appears to be a septated cyst measuring approximately 14 x 30 mm and a smaller adjacent cyst. The right ovary measures 2.6 cm with a couple of follicles. Compared to the prior study on December 16 the dominant left ovarian cyst is currently smaller and somewhat more complex and there are fewer right follicles. Impression: 1. Unremarkable uterus and endometrium. 2. Improved bilateral ovarian cysts compared to prior exam.
--- NOTE | 2017-01-06 16:37 | ED Elopement Review ---
ED Pt Elopement review - Results review Lab results: Laboratory Tests 01/04/17 01/04/17 01/04/17 12:04 12:04 12:04 WBC 6.4 RBC 4.48 Hgb 13.7 Hct 41.6 MCV 93 MCH 31 MCHC 33 RDW 13.8 Plt Count 205 Lymph % (Auto) 30.3 [place] % (Auto) 7.2 Eos % (Auto) 3.8 Baso % (Auto) 0.7 Lymph # 1.9 [place] # 0.5 Eos # 0.2 Baso # 0.0 Seg Neutrophils % 58.0 Seg Neutrophils # 3.7 Sodium 143 Potassium 5.1 H D Chloride 105.3 Carbon Dioxide 25 Anion Gap 18 BUN 9 Creatinine 0.6 L Estimated GFR > 60 BUN/Creatinine Ratio 15.00 Glucose 88 Calcium 9.5 Total Bilirubin 0.50 AST 16 ALT 13 Alkaline Phosphatase 52 Total Protein 7.0 Albumin 4.7 Albumin/Globulin Ratio 2.0 Lipase 30 HCG, Qual Negative - Call Back decision Pt Call Back Decision: No action required
== END 2017-01-04 17:00 | disposition left against medical advice (07) ==
LOC: ED 11:09
DX: R58 Hemorrhage, not elsewhere classified (principal); Z53.21 Procedure and treatment not carried out due to patient leaving prior to being seen by health care provider
CPT/HCPCS: 36415; 76830; 76856; 80053; 83690; 84703; 85025

== ENCOUNTER 2017-01-05 10:43 | Emergency (ER) | payer MEDICAID ==
[2017-01-05 11:51] VITALS: BP 98/68
[2017-01-05] MEDS ORDERED: NORCO 10/325 PO ONE (13:28)
[2017-01-05] MEDS ORDERED: ZOFRAN ODT PO ONE (13:28)
--- NOTE | 2017-01-05 13:28 | Emergency Department Report ---
ED Female HPI - General Chief complaint: Abdominal Pain Stated complaint: OVARIAN CYST BROKE/VOMITING Time Seen by Provider: 01/05/17 13:14 Source: patient Mode of arrival: Ambulatory Limitations: No Limitations - History of Present Illness Initial comments: 26-year-old female past medical history ovarian cysts presents with complaint of right sided lower abdominal pain 3 weeks. Patient states that she was in the ER yesterday and had tests done but had to leave before she was fully seen. Patient followed up with her [employer] this morning and was informed that she had a ruptured right-sided ovarian cyst. Patient on exam is awake alert and oriented 3 not in acute distress complaining of very mild nausea but 3 weeks of right lower abdominal pain. Patient denies any fevers or chills. She has had intermittent menstrual bleeding for several months. Patient states she is currently having mild vaginal bleeding. Patient had blood work and ultrasound done in the ER yesterday before low pain. She states she was also recently treated for Chlamydia gonorrhea by her [employer]. Treated within the last month. MD Complaint: pelvic pain Onset/Timin -: week(s) Location: suprapubic Severity: moderate Severity scale (0 -10): 6 Quality: cramping, sharp Consistency: intermittent Are you Now?: No Last Menstrual Period: 01/03/17 EDC: 10/10/17 Associated Symptoms: vaginal bleeding, abdominal pain - Related Data Sexually active: Yes Previous Rx's Medication Instructions Recorded Last Taken Type traMADol [Ultram] 50 mg PO Q6HR PRN #10 tablet 12/10/16 Unknown Rx Naproxen [Naprosyn TAB] 500 mg PO BID 5 Days 12/13/16 Unknown Rx Nitrofurantoin [place]/M-Cryst 100 mg PO Q12HR 5 Days 12/13/16 Unknown Rx [Macrobid CAP] HYDROcodone/APAP 7.5-325 [[place] 1 each PO Q6HR PRN #20 tablet 12/16/16 Unknown Rx 7.5/325] Levofloxacin [Levaquin TAB] 500 mg PO QDAY #5 tablet 12/16/16 Unknown Rx Ondansetron [Zofran Odt] 4 mg PO Q8HR #20 tab.rapdis 12/16/16 Unknown Rx HYDROcodone/APAP 5-325 [[place] 1 each PO Q6HR PRN #15 tablet 01/05/17 Unknown Rx 5/325] Naproxen [Naprosyn TAB] 500 mg PO BID #30 tablet 01/05/17 Unknown Rx Ondansetron [Zofran Odt] 4 mg PO Q8H PRN #20 tab.rapdis 01/05/17 Unknown Rx Allergies Allergy/AdvReac Type Severity Reaction Status Date / Time amoxicillin Allergy Unknown Verified 12/13/16 10:29 Penicillins Allergy Unknown Verified 12/13/16 10:29 sulfamethoxazole Allergy Unknown Verified 12/13/16 10:29 [From Bactrim] trimethoprim [From Bactrim] Allergy Unknown Verified 12/13/16 10:29 ED Review of Systems ROS: Stated complaint: OVARIAN CYST BROKE/VOMITING Other details as noted in HPI Constitutional: denies: chills, fever Eyes: denies: eye pain, eye discharge, vision change ENT: denies: ear pain, throat pain Respiratory: denies: cough, shortness of breath, wheezing Cardiovascular: denies: chest pain, palpitations Endocrine: no symptoms reported Gastrointestinal: denies: abdominal pain, nausea, diarrhea Genitourinary: abnormal menses. 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 - Surgical History Additional Surgical History: wisdom teeth - Social History Smoking Status: Never Smoker Substance Use Type: None - Medications Home Medications: Home Medications Medication Instructions Recorded Confirmed Last Taken Type traMADol [Ultram] 50 mg PO Q6HR PRN #10 tablet 12/10/16 Unknown Rx Naproxen [Naprosyn TAB] 500 mg PO BID 5 Days 12/13/16 Unknown Rx Nitrofurantoin [place]/M-Cryst 100 mg PO Q12HR 5 Days 12/13/16 Unknown Rx [Macrobid CAP] HYDROcodone/APAP 7.5-325 [[place] 1 each PO Q6HR PRN #20 tablet 12/16/16 Unknown Rx 7.5/325] Levofloxacin [Levaquin TAB] 500 mg PO QDAY #5 tablet 12/16/16 Unknown Rx Ondansetron [Zofran Odt] 4 mg PO Q8HR #20 tab.rapdis 12/16/16 Unknown Rx HYDROcodone/APAP 5-325 [[place] 1 each PO Q6HR PRN #15 tablet 01/05/17 Unknown Rx 5/325] Naproxen [Naprosyn TAB] 500 mg PO BID #30 tablet 01/05/17 Unknown Rx Ondansetron [Zofran Odt] 4 mg PO Q8H PRN #20 tab.rapdis 01/05/17 Unknown Rx ED Physical Exam - General Limitations: No Limitations General appearance: alert, in no apparent distress - Head Head exam: Present: atraumatic, normocephalic - Eye Eye exam: Present: normal appearance, PERRL, EOMI - ENT ENT exam: Present: mucous membranes moist - Neck Neck exam: Present: normal inspection - Respiratory Respiratory exam: Present: normal lung sounds bilaterally. Absent: respiratory distress - Cardiovascular Cardiovascular Exam: Present: regular rate, normal rhythm. Absent: systolic murmur, diastolic murmur, rubs, gallop - GI/Abdominal GI/Abdominal exam: Present: soft, tenderness (mild suprapubic tenderness), normal bowel sounds - Bi-manual exam: Present: adnexal tenderness (mild right-sided adnexal tenderness ) - Extremities Exam Extremities exam: Present: normal inspection - Back Exam Back exam: Present: normal inspection - Neurological Exam Neurological exam: Present: alert, oriented X3, CN II-XII intact, normal gait - Psychiatric Psychiatric exam: Present: normal affect, normal mood - Skin Skin exam: Present: warm, dry, intact, normal color. Absent: rash ED Course Vital Signs 01/05/17 11:42 Temperature 98.1 F Pulse Rate 86 Respiratory 18 Rate Blood Pressure 98/68 O2 Sat by Pulse 100 Oximetry ED Medical Decision Making - Medical Decision Making A/P: Ovarian cysts, pelvic pain 1-patient not currently , hCG negative, labs within last 24 hours unremarkable 2-pelvic US shows mild free pelvic fluid and ovarian cysts on both ovaries, good blood flow to both ovaries 3-short course of [place], naproxen, Zofran when necessary 4- I discussed the case with Dr. Garcia before discharge Critical care attestation.: If time is entered above; I have spent that time in minutes in the direct care of this critically ill patient, excluding procedure time. ED Disposition Clinical Impression: Pelvic pain, Ovarian cyst Disposition: DISCHARGED TO HOME OR SELFCARE Is pt being admited?: No Does the pt Need Aspirin: No Condition: Stable Instructions: Abdominal Pain (ED), Ovarian Cyst (ED) Prescriptions: HYDROcodone/APAP 5-325 [[place] 5/325] 1 each PO Q6HR PRN #15 tablet PRN Reason: Pain Naproxen [Naprosyn TAB] 500 mg PO BID #30 tablet Ondansetron [Zofran Odt] 4 mg PO Q8H PRN #20 tab.rapdis PRN Reason: Nausea Referrals: KEON ESTEVES MD [Staff Physician] - 3-5 Days CIARA ESTEVES MD [Referring] - 3-5 Days Forms: Work/School Release Form(ED) Time of Disposition: 14:08
[2017-01-05 14:01] LABS: Bilirubin,Urine NEG (Negative); Blood,Urine LG (Negative); Ketones,Urine NEG (Negative); Leukocyte Esterase,Urine NEG (Negative); Nitrite,Urine NEG (Negative); Protein,Urine <15 mg/dL mg/dL (Negative); Urobilinogen,Urine < 2.0 mg/dL (<2.0)
== END 2017-01-05 14:17 | disposition home or self-care (01) ==
LOC: ED 10:43
DX: N83.209 Unspecified ovarian cyst, unspecified side (principal); J45.909 Unspecified asthma, uncomplicated
CPT/HCPCS: 81001; 87086; 99283; Q0162

== ENCOUNTER 2017-02-08 09:53 | Emergency (ER) | payer SELFPAY ==
[2017-02-08 10:14] VITALS: BP 126/87
[2017-02-08] MEDS ORDERED: DECADRON IM ONE (11:35)
[2017-02-08] MEDS ORDERED: MOTRIN PO ONE (11:35)
--- NOTE | 2017-02-08 11:35 | Emergency Department Report ---
ED ENT HPI - General Chief complaint: Sore Throat Stated complaint: SORETHOAT,EARS Time Seen by Provider: 02/08/17 11:11 Source: patient Mode of arrival: Ambulatory Limitations: No Limitations - History of Present Illness Initial comments: 26-year-old female past medical history none presents with complaint of sore throat for 3 days, patient speaking in full sentences, denies any nausea or vomiting, subjective fever chills. Patient states swallowing solids is difficult due to irritation of the back of her throat. Has been taking Tylenol with minimal relief of her pain. MD complaint: sore throat, ear pain Onset/Timin -: days(s) Location: throat Severity: moderate Severity scale (0 -10): 5 Quality: aching Worsens with: swallowing, eating Associated Symptoms: sore throat - Related Data Previous Rx's Medication Instructions Recorded Last Taken Type traMADol [Ultram] 50 mg PO Q6HR PRN #10 tablet 12/10/16 Unknown Rx Naproxen [Naprosyn TAB] 500 mg PO BID 5 Days 12/13/16 Unknown Rx Nitrofurantoin [place]/M-Cryst 100 mg PO Q12HR 5 Days 12/13/16 Unknown Rx [Macrobid CAP] HYDROcodone/APAP 7.5-325 [[place] 1 each PO Q6HR PRN #20 tablet 12/16/16 Unknown Rx 7.5/325] Levofloxacin [Levaquin TAB] 500 mg PO QDAY #5 tablet 12/16/16 Unknown Rx Ondansetron [Zofran Odt] 4 mg PO Q8HR #20 tab.rapdis 12/16/16 Unknown Rx HYDROcodone/APAP 5-325 [[place] 1 each PO Q6HR PRN #15 tablet 01/05/17 Unknown Rx 5/325] Naproxen [Naprosyn TAB] 500 mg PO BID #30 tablet 01/05/17 Unknown Rx Ondansetron [Zofran Odt] 4 mg PO Q8H PRN #20 tab.rapdis 01/05/17 Unknown Rx Azithromycin [Zithromax Z-GERARDO] 250 mg PO QDAY #1 pack 02/08/17 Unknown Rx Ibuprofen [Motrin] 600 mg PO Q8H PRN #25 tablet 02/08/17 Unknown Rx Allergies Allergy/AdvReac Type Severity Reaction Status Date / Time amoxicillin Allergy Hives Verified 02/08/17 10:15 Penicillins Allergy Hives Verified 02/08/17 10:15 sulfamethoxazole Allergy Hives Verified 02/08/17 10:15 [From Bactrim] trimethoprim [From Bactrim] Allergy Hives Verified 02/08/17 10:15 peanut butter Allergy Anaphylaxis Uncoded 02/08/17 10:15 ED Dental HPI - General Chief complaint: Sore Throat Stated complaint: SORETHOAT,EARS Time Seen by Provider: 02/08/17 11:11 Source: patient Mode of arrival: Ambulatory Limitations: No Limitations - Related Data Previous Rx's Medication Instructions Recorded Last Taken Type traMADol [Ultram] 50 mg PO Q6HR PRN #10 tablet 12/10/16 Unknown Rx Naproxen [Naprosyn TAB] 500 mg PO BID 5 Days 12/13/16 Unknown Rx Nitrofurantoin [place]/M-Cryst 100 mg PO Q12HR 5 Days 12/13/16 Unknown Rx [Macrobid CAP] HYDROcodone/APAP 7.5-325 [[place] 1 each PO Q6HR PRN #20 tablet 12/16/16 Unknown Rx 7.5/325] Levofloxacin [Levaquin TAB] 500 mg PO QDAY #5 tablet 12/16/16 Unknown Rx Ondansetron [Zofran Odt] 4 mg PO Q8HR #20 tab.rapdis 12/16/16 Unknown Rx HYDROcodone/APAP 5-325 [[place] 1 each PO Q6HR PRN #15 tablet 01/05/17 Unknown Rx 5/325] Naproxen [Naprosyn TAB] 500 mg PO BID #30 tablet 01/05/17 Unknown Rx Ondansetron [Zofran Odt] 4 mg PO Q8H PRN #20 tab.rapdis 01/05/17 Unknown Rx Azithromycin [Zithromax Z-GERARDO] 250 mg PO QDAY #1 pack 02/08/17 Unknown Rx Ibuprofen [Motrin] 600 mg PO Q8H PRN #25 tablet 02/08/17 Unknown Rx Allergies Allergy/AdvReac Type Severity Reaction Status Date / Time amoxicillin Allergy Hives Verified 02/08/17 10:15 Penicillins Allergy Hives Verified 02/08/17 10:15 sulfamethoxazole Allergy Hives Verified 02/08/17 10:15 [From Bactrim] trimethoprim [From Bactrim] Allergy Hives Verified 02/08/17 10:15 peanut butter Allergy Anaphylaxis Uncoded 02/08/17 10:15 ED Review of Systems ROS: Stated complaint: SORETHOAT,EARS Other details as noted in HPI Constitutional: malaise. denies: chills, fever Eyes: denies: eye pain, eye discharge, vision change ENT: throat pain. denies: ear pain Respiratory: denies: cough, shortness of breath, wheezing Cardiovascular: denies: chest pain, palpitations Endocrine: no symptoms reported Gastrointestinal: denies: abdominal pain, nausea, diarrhea Genitourinary: denies: urgency, dysuria, discharge Musculoskeletal: denies: back pain, joint swelling, arthralgia Skin: denies: rash, lesions Neurological: denies: headache, weakness, paresthesias Psychiatric: denies: anxiety, depression Hematological/Lymphatic: denies: easy bleeding, easy bruising ED Past Medical Hx - Past Medical History Hx Psychiatric Treatment: Yes (depression) Hx Asthma: Yes 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 tubes in ears - Social History Smoking Status: Current Every Day Smoker Substance Use Type: None - Medications Home Medications: Home Medications Medication Instructions Recorded Confirmed Last Taken Type traMADol [Ultram] 50 mg PO Q6HR PRN #10 tablet 12/10/16 Unknown Rx Naproxen [Naprosyn TAB] 500 mg PO BID 5 Days 12/13/16 Unknown Rx Nitrofurantoin [place]/M-Cryst 100 mg PO Q12HR 5 Days 12/13/16 Unknown Rx [Macrobid CAP] HYDROcodone/APAP 7.5-325 [[place] 1 each PO Q6HR PRN #20 tablet 12/16/16 Unknown Rx 7.5/325] Levofloxacin [Levaquin TAB] 500 mg PO QDAY #5 tablet 12/16/16 Unknown Rx Ondansetron [Zofran Odt] 4 mg PO Q8HR #20 tab.rapdis 12/16/16 Unknown Rx HYDROcodone/APAP 5-325 [[place] 1 each PO Q6HR PRN #15 tablet 01/05/17 Unknown Rx 5/325] Naproxen [Naprosyn TAB] 500 mg PO BID #30 tablet 01/05/17 Unknown Rx Ondansetron [Zofran Odt] 4 mg PO Q8H PRN #20 tab.rapdis 01/05/17 Unknown Rx Azithromycin [Zithromax Z-GERARDO] 250 mg PO QDAY #1 pack 02/08/17 Unknown Rx Ibuprofen [Motrin] 600 mg PO Q8H PRN #25 tablet 02/08/17 Unknown Rx ED Physical Exam - General Limitations: No Limitations General appearance: alert, in no apparent distress - Head Head exam: Present: atraumatic, normocephalic - Eye Eye exam: Present: normal appearance, PERRL, EOMI - ENT ENT exam: Present: mucous membranes moist - Expanded ENT Exam Expanded Throat exam: Positive: tonsillar erythema, tonsillar exudate (mild tonsillar erythema and exudates on exam no CASE ASSISTANT uvula is midline) - Neck Neck exam: Present: normal inspection, full ROM, lymphadenopathy (mild anterior cervical adenopathy on exam) - Respiratory Respiratory exam: Present: normal lung sounds bilaterally. Absent: respiratory distress - Cardiovascular Cardiovascular Exam: Present: regular rate, normal rhythm. Absent: systolic murmur, diastolic murmur, rubs, gallop - GI/Abdominal GI/Abdominal exam: Present: soft, normal bowel sounds - Extremities Exam Extremities exam: Present: normal inspection - Back Exam Back exam: Present: normal inspection - Neurological Exam Neurological exam: Present: alert, oriented X3 - Psychiatric Psychiatric exam: Present: normal affect, normal mood - Skin Skin exam: Present: warm, dry, intact, normal color. Absent: rash ED Course Vital Signs 02/08/17 10:09 Temperature 98.2 F Pulse Rate 91 H Respiratory 17 Rate Blood Pressure 126/87 O2 Sat by Pulse 100 Oximetry ED Medical Decision Making - Medical Decision Making A/P: Strep pharyngitis 1-patient is allergic to penicillin and Bactrim, will give patient course of azithromycin as recommended by up-to-date as alternative 2-Motrin when necessary 3-patient tolerating by mouth fluids and food 4-follow-up with primary care doctor Critical care attestation.: If time is entered above; I have spent that time in minutes in the direct care of this critically ill patient, excluding procedure time. ED Disposition Clinical Impression: Strep throat Disposition: DC- TO HOME OR SELFCARE Is pt being admited?: No Does the pt Need Aspirin: No Condition: Stable Instructions: Strep Throat (ED) Prescriptions: Azithromycin [Zithromax Z-GERARDO] 250 mg PO QDAY #1 pack Ibuprofen [Motrin] 600 mg PO Q8H PRN #25 tablet PRN Reason: Pain Referrals: [facility] [Outside] - 3-5 Days Forms: Work/School Release Form(ED)
[2017-02-08] MEDS ORDERED: PEPCID PO ONE (11:36)
== END 2017-02-08 13:08 | disposition home or self-care (01) ==
LOC: ED 09:53
DX: J02.0 Streptococcal pharyngitis (principal); J45.909 Unspecified asthma, uncomplicated; F17.200 Nicotine dependence, unspecified, uncomplicated
CPT/HCPCS: 87430; 96372; 99282; J1100

== ENCOUNTER 2017-02-14 22:43 | Emergency (ER) | payer SELFPAY ==
[2017-02-14 23:04] VITALS: BP 117/79
== END 2017-02-14 23:03 | disposition left against medical advice (07) ==
LOC: ED 22:43
DX: R07.0 Pain in throat (principal); Z53.21 Procedure and treatment not carried out due to patient leaving prior to being seen by health care provider

== ENCOUNTER 2017-03-13 10:58 | Emergency (ER) | payer SELFPAY ==
[2017-03-13] MEDS ORDERED: BOOSTRIX IM ONE (11:09)
--- NOTE | 2017-03-13 11:09 | Emergency Department Report ---
Chief Complaint: Extremity Injury, Lower Stated Complaint: STEPPED ON RUSTED NAIL Time Seen by Provider: 03/13/17 11:07 - HPI History of Present Illness: PT states she stepped on a nail and it went thru her flip flop 4-5 days ago. PT states she has felt feverish and chilled. pt states her TD vaccine is not up to date. - ROS Review of Systems: + foot pain + headache + on menstrual cycle - Exam Physical Exam: wound to L plantar foot, questionable fb MSE screening note: Focused history and physical exam performed. Due to findings the following was ordered: xr, td ED Disposition for MSE Condition: Stable
[2017-03-13 11:12] VITALS: BP 105/69
--- NOTE | 2017-03-13 11:30 | XRay Report ---
LEFT FOOT RADIOGRAPHS INDICATION: Puncture wound. COMPARISON: 12/07/2016 right foot views. FINDINGS: AP, lateral and oblique views of the left foot demonstrate normal bones, joints and soft tissues. No radiopaque foreign body. CONCLUSION: No acute abnormality. Thank you for the opportunity to participate in this patient's care.
[2017-03-13] MEDS ORDERED: MOTRIN PO ONE (12:41)
--- NOTE | 2017-03-13 22:04 | Emergency Department Report ---
Entered by HOUSTON ABDI, acting as scribe for MIKA VASQUEZ NP. ED Lower Extremity HPI - General Chief Complaint: Extremity Injury, Lower Stated Complaint: STEPPED ON RUSTED NAIL Time Seen by Provider: 03/13/17 11:07 Source: patient Mode of arrival: Ambulatory Limitations: No Limitations - History of Present Illness Initial Comments: This is a 26 year old female, nontoxic, well nourished in appearance, no acute signs of distress presents with left lower foot pain. Patient states she was in the yard playing with her friends and stepped on a rusted nail. Patient stated she was wearing flip flops during incident. She reports pain while weight bearing and palpation on planat distal foot and describes as sharp pain. Patient reports bleeding during incidence but denies, chills, trauma to foot, numbness, fever, chills, numbness, tingling, CP, SOB, headache, stiff neck, or tingling. TD shot not UTD. MD Complaint: foot injury (foot pain ) -: days(s) (4-5 ) Injury: Foot: Left Type of Injury: other (Stepped on a rusted nail) Place: street/outdoors Severity: moderate Severity scale (0 -10): 4 Improves With: nothing Worsens With: weight bearing, movement, palpation Context: stepped on nail Associated Symptoms: able to partially bear weight, ambulatory. denies: snap/ pop sensation, swelling, numbness, tingling, unable to bear weight - Related Data Previous Rx's Medication Instructions Recorded Last Taken Type traMADol [Ultram] 50 mg PO Q6HR PRN #10 tablet 12/10/16 Unknown Rx Naproxen [Naprosyn TAB] 500 mg PO BID 5 Days 12/13/16 Unknown Rx Nitrofurantoin [place]/M-Cryst 100 mg PO Q12HR 5 Days 12/13/16 Unknown Rx [Macrobid CAP] HYDROcodone/APAP 7.5-325 [[place] 1 each PO Q6HR PRN #20 tablet 12/16/16 Unknown Rx 7.5/325] Levofloxacin [Levaquin TAB] 500 mg PO QDAY #5 tablet 12/16/16 Unknown Rx Ondansetron [Zofran Odt] 4 mg PO Q8HR #20 tab.rapdis 12/16/16 Unknown Rx HYDROcodone/APAP 5-325 [[place] 1 each PO Q6HR PRN #15 tablet 01/05/17 Unknown Rx 5/325] Naproxen [Naprosyn TAB] 500 mg PO BID #30 tablet 01/05/17 Unknown Rx Ondansetron [Zofran Odt] 4 mg PO Q8H PRN #20 tab.rapdis 01/05/17 Unknown Rx Azithromycin [Zithromax Z-GERARDO] 250 mg PO QDAY #1 pack 02/08/17 Unknown Rx Ibuprofen [Motrin] 600 mg PO Q8H PRN #25 tablet 02/08/17 Unknown Rx Ciprofloxacin HCl [Ciprofloxacin 500 mg PO Q12HR 7 Days 03/13/17 Unknown Rx TAB] Allergies Allergy/AdvReac Type Severity Reaction Status Date / Time amoxicillin Allergy Hives Verified 03/13/17 11:07 Penicillins Allergy Hives Verified 03/13/17 11:07 sulfamethoxazole Allergy Hives Verified 03/13/17 11:07 [From Bactrim] trimethoprim [From Bactrim] Allergy Hives Verified 03/13/17 11:07 peanut butter Allergy Anaphylaxis Uncoded 03/13/17 11:07 ED Review of Systems Comment: All other systems reviewed and negative Constitutional: denies: chills, fever Eyes: denies: eye pain, eye discharge, vision change ENT: denies: ear pain, throat pain Respiratory: denies: cough, shortness of breath, wheezing Cardiovascular: denies: chest pain, palpitations Endocrine: no symptoms reported Gastrointestinal: denies: abdominal pain, nausea, diarrhea Genitourinary: denies: urgency, dysuria, discharge Musculoskeletal: denies: back pain, joint swelling, arthralgia Skin: denies: rash, lesions Neurological: denies: headache, weakness, paresthesias Psychiatric: denies: anxiety, depression Hematological/Lymphatic: denies: easy bleeding, easy bruising ED Past Medical Hx - Past Medical History Previous Medical History?: Yes Hx Psychiatric Treatment: Yes (depression) Hx Asthma: Yes 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 tubes in ears - Social History Smoking Status: Current Some Day Smoker Substance Use Type: None - Medications Home Medications: Home Medications Medication Instructions Recorded Confirmed Last Taken Type traMADol [Ultram] 50 mg PO Q6HR PRN #10 tablet 12/10/16 Unknown Rx Naproxen [Naprosyn TAB] 500 mg PO BID 5 Days 12/13/16 Unknown Rx Nitrofurantoin [place]/M-Cryst 100 mg PO Q12HR 5 Days 12/13/16 Unknown Rx [Macrobid CAP] HYDROcodone/APAP 7.5-325 [[place] 1 each PO Q6HR PRN #20 tablet 12/16/16 Unknown Rx 7.5/325] Levofloxacin [Levaquin TAB] 500 mg PO QDAY #5 tablet 12/16/16 Unknown Rx Ondansetron [Zofran Odt] 4 mg PO Q8HR #20 tab.rapdis 12/16/16 Unknown Rx HYDROcodone/APAP 5-325 [[place] 1 each PO Q6HR PRN #15 tablet 01/05/17 Unknown Rx 5/325] Naproxen [Naprosyn TAB] 500 mg PO BID #30 tablet 01/05/17 Unknown Rx Ondansetron [Zofran Odt] 4 mg PO Q8H PRN #20 tab.rapdis 01/05/17 Unknown Rx Azithromycin [Zithromax Z-GERARDO] 250 mg PO QDAY #1 pack 02/08/17 Unknown Rx Ibuprofen [Motrin] 600 mg PO Q8H PRN #25 tablet 02/08/17 Unknown Rx Ciprofloxacin HCl [Ciprofloxacin 500 mg PO Q12HR 7 Days 03/13/17 Unknown Rx TAB] ED Physical Exam - General Limitations: No Limitations General appearance: alert, in no apparent distress - Head Head exam: Present: atraumatic, normocephalic, normal inspection - Eye Eye exam: Present: normal appearance, PERRL, EOMI. Absent: scleral icterus, conjunctival injection, nystagmus, periorbital swelling, periorbital tenderness Pupils: Present: normal accommodation. Absent: irregular - ENT ENT exam: Present: normal exam, normal orophraynx, mucous membranes moist, TM's normal bilaterally, normal external ear exam - Neck Neck exam: Present: normal inspection, full ROM. Absent: tenderness, meningismus, lymphadenopathy, thyromegaly - Respiratory Respiratory exam: Present: normal lung sounds bilaterally. Absent: respiratory distress, wheezes, rales, rhonchi, stridor, chest wall tenderness, accessory muscle use, decreased breath sounds, prolonged expiratory - Cardiovascular Cardiovascular Exam: Present: regular rate, normal rhythm, normal heart sounds. Absent: bradycardia, tachycardia, irregular rhythm, systolic murmur, diastolic murmur, rubs, gallop - GI/Abdominal GI/Abdominal exam: Present: soft, normal bowel sounds. Absent: distended, tenderness - Rectal Rectal exam: Present: deferred - Extremities Exam Extremities exam: Present: normal inspection, full ROM, normal capillary refill. Absent: tenderness, pedal edema, joint swelling, calf tenderness - Expanded Lower Extremity Exam Left Hip exam: Present: normal inspection, full ROM, pelvic stability. Absent: tenderness, swelling, abrasion, laceration, ecchymosis, deformity, crepidus, dislocation, erythema, external rotation, internal rotation, shortening Upper Leg exam: Present: normal inspection, full ROM. Absent: tenderness, swelling, abrasion, laceration, ecchymosis, deformity, crepidus, dislocation, erythema Knee exam: Present: normal inspection, full ROM, full knee extension. Absent: tenderness, swelling, abrasion, laceration, ecchymosis, deformity, crepidus, dislocation, erythema, effusion, pain w/ pronation/supination, posterior draw sign, pain/laxity with valgus, pain/laxity with varus Lower Leg exam: Present: normal inspection, full ROM. Absent: tenderness, swelling, abrasion, laceration, ecchymosis, deformity, crepidus, dislocation, erythema, palpable cord, Amelie's sign Ankle exam: Present: normal inspection, full ROM. Absent: tenderness, swelling , abrasion, laceration, ecchymosis, deformity, crepidus, dislocation, erythema, anterior draw sign Foot/Toe exam: Present: normal inspection (no open wound present. No bleeding. No pus. No drainage. ), full ROM, tenderness (plantar distal region). Absent: swelling, abrasion, laceration, ecchymosis, deformity, crepidus, dislocation, erythema, amputation, puncture wound, foreign body, calcaneal tenderness, tenderness at base of 5th metatarsal, nail avulsion, subungual hematoma Neuro vascular tendon exam: Present: no vascular compromise. Absent: pulse deficit, abnormal cap refill, motor deficit, sensory deficit, tendon deficit, extremity cold to touch, pallor, abnormal 2-point discrimination, decreased fine /light touch, foot drop, peroneal nerve deficit, significant pain with passive ROM of distal joint Gait: Positive: observed and normal 1 - c/o of rusted nail penatration - Back Exam Back exam: Present: normal inspection, full ROM. Absent: tenderness, CVA tenderness (R), CVA tenderness (L), muscle spasm, paraspinal tenderness, vertebral tenderness, rash noted - Neurological Exam Neurological exam: Present: alert, oriented X3, CN II-XII intact, normal gait, reflexes normal - Psychiatric Psychiatric exam: Present: normal affect, normal mood - Skin Skin exam: Present: warm, dry, intact, normal color. Absent: rash ED Course Vital Signs 03/13/17 11:07 Temperature 98.3 F Pulse Rate 64 Blood Pressure 105/69 O2 Sat by Pulse 100 Oximetry - Reevaluation(s) Reevaluation #1: 03/13/17 12:56 Patient is talking in full sentences with no signs of distress noted. ED Lower Extremity MDM - Medical Decision Making Ed course: This is a 26-year-old female that presents with pain in foot s/p puncture with rusted nail 1- patient was examined by myself. X-ray of left foot has been obtained. Dictated by Dr. Carnes. Impression; no foreign body. No fracture noted. No acute abnormality. 2- patient was notified of x-ray findings when a further questions noted by the patient. 3- patient received Cipro for 7 days the time of discharge. 4- patient was instructed to follow up with her primary care doctor in 3-5 days or if symptoms worsen such as numbness, tingling, pus, swelling, drainage, fever , chills, headache, chest pain or shortness of breath return to emergency room as soon as possible. 5- patient received tetanus and ibuprofen in the ED ED Disposition Clinical Impression: Puncture wound of plantar aspect of foot Qualifiers: Encounter type: initial encounter Laterality: left Qualified Code(s): S91.332A - Puncture wound without foreign body, left foot, initial encounter Disposition: - TO HOME OR SELFCARE Is pt being admited?: No Does the pt Need Aspirin: No Condition: Stable Instructions: Puncture Wound (ED), Ciprofloxacin (By mouth), Acute Wound Care ( ED) Additional Instructions: follow up with your primary care doctor in 3-5 days or if symptoms worsen such as numbness, tingling, pus, swelling, drainage, fever, chills, headache, chest pain or shortness of breath return to emergency room as soon as possible. Take full course of antibiotics that was prescribed to. Prescriptions: Ciprofloxacin HCl [Ciprofloxacin TAB] 500 mg PO Q12HR 7 Days Referrals: PRIMARY MD ISABELA [Primary Care Provider] - 3-5 Days STEPHEN DUPREE MD [Staff Physician] - 3-5 Days [facility] [Outside] - 3-5 Days [facility] [Outside] - 3-5 Days This documentation as recorded by the JIN urena PEARL,accurately reflects the service I personally performed and the decisions made by me,MIKA VASQUEZ, BELT POL[employer]ER.
== END 2017-03-13 13:40 | disposition home or self-care (01) ==
LOC: ED 10:58
DX: S91.332A Puncture wound without foreign body, left foot, initial encounter (principal); F32.9 Major depressive disorder, single episode, unspecified; J45.909 Unspecified asthma, uncomplicated; F17.200 Nicotine dependence, unspecified, uncomplicated; Z88.0 Allergy status to penicillin; Z88.1 Allergy status to other antibiotic agents; Z88.8 Allergy status to other drugs, medicaments and biological substances; Z91.018 Allergy to other foods; W22.8XXA Striking against or struck by other objects, initial encounter; Y93.89 Activity, other specified; Y99.8 Other external cause status; Y92.89 Other specified places as the place of occurrence of the external cause
CPT/HCPCS: 90471; 90715

== ENCOUNTER 2017-04-09 12:02 | Emergency (ER) | payer OTHER ==
--- NOTE | 2017-04-09 14:34 | XRay Report ---
FINAL REPORT EXAM: XR ANKLE 3+V LT HISTORY: RO FX FROM INJURY/ lt ankle pain TECHNIQUE: 3 views of the left ankle. PRIORS: None FINDINGS: Joint spaces are maintained. Talar dome is intact. No acute fracture or dislocation. IMPRESSION: 1. No acute fracture.
--- NOTE | 2017-04-09 16:14 | XRay Report ---
FINAL REPORT PROCEDURE: XR FOOT 2V LT TECHNIQUE: Left foot radiographs, AP, lateral, and oblique views. HISTORY: RO OSTEOMYLITIS FROM NAIL PUNCTURE/ lt foot pain COMPARISON: No prior studies are available for comparison. FINDINGS: Fracture (s) and/or Dislocation(s): None . Alignment: Normal. Joint space(s): Normal. Soft tissues: Normal. Bone mineralization: Normal. Foreign bodies: None. Calcaneal spurring: None. IMPRESSION: No evidence of fracture or dislocation. No radiopaque foreign bodies are seen. There is no focal bone loss or abnormal periosteal reaction that would suggest osteomyelitis. If further evaluation is clinically indicated consider 3 phase bone scan or MRI of the foot for further evaluation.
[2017-04-09 17:31] VITALS: BP 120/70
--- NOTE | 2017-04-09 18:38 | Emergency Department Report ---
Entered by HOUSTON ABDI, acting as scribe for MIKA VASQUEZ NP. ED Lower Extremity HPI - General Chief Complaint: Extremity Injury, Lower Stated Complaint: LEFT FOOT INJURY Time Seen by Provider: 04/09/17 12:54 Source: patient Mode of arrival: Ambulatory Limitations: No Limitations - History of Present Illness Initial Comments: This is a 26-year-old female nontoxic, well nourished in appearance, no acute signs of distress, present to ED c/o ankle/foot pain since last night. Patient states she twisted her ankle while walking last night. Patient describes pain as sharp/cramping. Patient denies any joint redness or joint swelling. Denies pus or drainage. Patient denies fever, chills, numbness, tingling, headache, chest pain, stiff neck, or SOB. Patient denies any spores of sores. Denies sensation of lockjaw. Denies stiff neck, sardonic smile, or dysphagia. NKDA. MORA Complaint: ankle injury, foot injury -: Gradual, Last night Injury: Ankle: Left, Foot: Left Type of Injury: inversion (twisted her ankle) Place: street/outdoors Severity: moderate Severity scale (0 -10): 4 Improves With: nothing Worsens With: weight bearing, movement Context: walking Associated Symptoms: able to partially bear weight, ambulatory. denies: snap/ pop sensation, swelling, numbness, tingling, unable to bear weight - Related Data Previous Rx's Medication Instructions Recorded Last Taken Type traMADol [Ultram] 50 mg PO Q6HR PRN #10 tablet 12/10/16 Unknown Rx Naproxen [Naprosyn TAB] 500 mg PO BID 5 Days 12/13/16 Unknown Rx Nitrofurantoin Scurry/M-Cryst 100 mg PO Q12HR 5 Days 12/13/16 Unknown Rx [Macrobid CAP] HYDROcodone/APAP 7.5-325 [[place] 1 each PO Q6HR PRN #20 tablet 12/16/16 Unknown Rx 7.5/325] Levofloxacin [Levaquin TAB] 500 mg PO QDAY #5 tablet 12/16/16 Unknown Rx Ondansetron [Zofran Odt] 4 mg PO Q8HR #20 tab.rapdis 12/16/16 Unknown Rx HYDROcodone/APAP 5-325 [[place] 1 each PO Q6HR PRN #15 tablet 01/05/17 Unknown Rx 5/325] Naproxen [Naprosyn TAB] 500 mg PO BID #30 tablet 01/05/17 Unknown Rx Ondansetron [Zofran Odt] 4 mg PO Q8H PRN #20 tab.rapdis 01/05/17 Unknown Rx Azithromycin [Zithromax Z-GERARDO] 250 mg PO QDAY #1 pack 02/08/17 Unknown Rx Ibuprofen [Motrin] 600 mg PO Q8H PRN #25 tablet 02/08/17 Unknown Rx Ciprofloxacin HCl [Ciprofloxacin 500 mg PO Q12HR 7 Days 03/13/17 Unknown Rx TAB] Ibuprofen [Motrin 600 MG tab] 600 mg PO Q8H PRN #30 tablet 04/09/17 Unknown Rx Allergies Allergy/AdvReac Type Severity Reaction Status Date / Time amoxicillin Allergy Hives Verified 03/13/17 11:07 Penicillins Allergy Hives Verified 03/13/17 11:07 sulfamethoxazole Allergy Hives Verified 03/13/17 11:07 [From Bactrim] trimethoprim [From Bactrim] Allergy Hives Verified 03/13/17 11:07 peanut butter Allergy Anaphylaxis Uncoded 03/13/17 11:07 ED Review of Systems Comment: All other systems reviewed and negative Constitutional: denies: chills, fever Eyes: denies: eye pain, eye discharge, vision change ENT: denies: ear pain, throat pain Respiratory: denies: cough, shortness of breath, wheezing Cardiovascular: denies: chest pain, palpitations Endocrine: no symptoms reported Gastrointestinal: denies: abdominal pain, nausea, vomiting, diarrhea Genitourinary: denies: urgency, dysuria, discharge Musculoskeletal: denies: back pain, joint swelling, arthralgia Skin: denies: rash, lesions Neurological: denies: headache, weakness, numbness, paresthesias Psychiatric: denies: anxiety, depression Hematological/Lymphatic: denies: easy bleeding, easy bruising ED Past Medical Hx - Past Medical History Hx Psychiatric Treatment: Yes (depression) Hx Asthma: Yes 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 tubes in ears - Social History Smoking Status: Never Smoker Substance Use Type: None - Medications Home Medications: Home Medications Medication Instructions Recorded Confirmed Last Taken Type traMADol [Ultram] 50 mg PO Q6HR PRN #10 tablet 12/10/16 Unknown Rx Naproxen [Naprosyn TAB] 500 mg PO BID 5 Days 12/13/16 Unknown Rx Nitrofurantoin Scurry/M-Cryst 100 mg PO Q12HR 5 Days 12/13/16 Unknown Rx [Macrobid CAP] HYDROcodone/APAP 7.5-325 [[place] 1 each PO Q6HR PRN #20 tablet 12/16/16 Unknown Rx 7.5/325] Levofloxacin [Levaquin TAB] 500 mg PO QDAY #5 tablet 12/16/16 Unknown Rx Ondansetron [Zofran Odt] 4 mg PO Q8HR #20 tab.rapdis 12/16/16 Unknown Rx HYDROcodone/APAP 5-325 [[place] 1 each PO Q6HR PRN #15 tablet 01/05/17 Unknown Rx 5/325] Naproxen [Naprosyn TAB] 500 mg PO BID #30 tablet 01/05/17 Unknown Rx Ondansetron [Zofran Odt] 4 mg PO Q8H PRN #20 tab.rapdis 01/05/17 Unknown Rx Azithromycin [Zithromax Z-GERARDO] 250 mg PO QDAY #1 pack 02/08/17 Unknown Rx Ibuprofen [Motrin] 600 mg PO Q8H PRN #25 tablet 02/08/17 Unknown Rx Ciprofloxacin HCl [Ciprofloxacin 500 mg PO Q12HR 7 Days 03/13/17 Unknown Rx TAB] Ibuprofen [Motrin 600 MG tab] 600 mg PO Q8H PRN #30 tablet 04/09/17 Unknown Rx ED Physical Exam - General Limitations: No Limitations General appearance: alert, in no apparent distress - Head Head exam: Present: atraumatic, normocephalic - Eye Eye exam: Present: normal appearance, PERRL, EOMI. Absent: scleral icterus, conjunctival injection, nystagmus, periorbital swelling, periorbital tenderness - ENT ENT exam: Present: normal exam, normal orophraynx, mucous membranes moist, TM's normal bilaterally, normal external ear exam - Neck Neck exam: Present: normal inspection, full ROM. Absent: tenderness, meningismus, lymphadenopathy, thyromegaly - Respiratory Respiratory exam: Present: normal lung sounds bilaterally. Absent: respiratory distress, wheezes, rales, rhonchi, stridor, chest wall tenderness, accessory muscle use, decreased breath sounds, prolonged expiratory - Cardiovascular Cardiovascular Exam: Present: regular rate, normal rhythm, normal heart sounds. Absent: systolic murmur, diastolic murmur, rubs, gallop - GI/Abdominal GI/Abdominal exam: Present: soft, normal bowel sounds. Absent: distended, tenderness, guarding, rebound, rigid, diminished bowel sounds - Extremities Exam Extremities exam: Present: normal inspection, full ROM, normal capillary refill. Absent: tenderness, pedal edema, joint swelling, calf tenderness - Expanded Lower Extremity Exam Left Hip exam: Present: normal inspection, full ROM, external rotation, internal rotation, pelvic stability. Absent: tenderness, swelling, abrasion, laceration , ecchymosis, deformity, crepidus, dislocation, erythema, shortening Upper Leg exam: Present: normal inspection, full ROM. Absent: tenderness, swelling, abrasion, laceration, ecchymosis, deformity, crepidus, dislocation, erythema Knee exam: Present: normal inspection, full ROM, full knee extension. Absent: tenderness, swelling, abrasion, laceration, ecchymosis, deformity, crepidus, dislocation, erythema, effusion, pain w/ pronation/supination, posterior draw sign, pain/laxity with valgus, pain/laxity with varus Lower Leg exam: Present: normal inspection, full ROM. Absent: tenderness, swelling, abrasion, laceration, ecchymosis, deformity, crepidus, dislocation, erythema, palpable cord, Amelie's sign Ankle exam: Present: normal inspection, full ROM, tenderness. Absent: swelling , abrasion, laceration, ecchymosis, deformity, crepidus, dislocation, erythema, anterior draw sign Foot/Toe exam: Present: normal inspection, full ROM. Absent: tenderness, swelling, abrasion, laceration, ecchymosis, deformity, crepidus, dislocation, erythema, amputation, puncture wound, foreign body, calcaneal tenderness, tenderness at base of 5th metatarsal, nail avulsion, subungual hematoma Neuro vascular tendon exam: Present: no vascular compromise. Absent: pulse deficit, abnormal cap refill, motor deficit, sensory deficit, tendon deficit, extremity cold to touch, pallor, abnormal 2-point discrimination, decreased fine /light touch, foot drop, peroneal nerve deficit, significant pain with passive ROM of distal joint Gait: Positive: observed and limited by pain 1 - tenderness - Back Exam Back exam: Present: normal inspection, full ROM. Absent: tenderness, CVA tenderness (R), CVA tenderness (L), muscle spasm, paraspinal tenderness, vertebral tenderness, rash noted - Neurological Exam Neurological exam: Present: alert, oriented X3 - Psychiatric Psychiatric exam: Present: normal affect, normal mood - Skin Skin exam: Present: warm, dry, intact, normal color. Absent: rash - Other Other exam information: Negative stiff neck, board-like rigid abdomen. Negative for dysphagia or trismus. Normal gag reflex. ED Course Vital Signs 04/09/17 12:15 Temperature 98 F Pulse Rate 95 H Respiratory 18 Rate Blood Pressure 114/80 O2 Sat by Pulse 100 Oximetry - Reevaluation(s) Reevaluation #1: 04/09/17 14:13 Patient is able to speak in full sentences with no signs of distress noted. ED Lower Extremity MDM - Medical Decision Making ED course; this is a 26-year-old female that presents with left ankle sprain 1- patient was examined myself. Patient received an x-ray of left ankle and foot with normal findings and no abnormalities or fractures noted and dictated by radiologist. Patient was notified of x-ray findings with no further questions noted by the patient. Patient was instructed to f/u with Dr. Yang for possible MRI of foot to r/o osteomyelitis. 2- patient received an Manish wrap to the left foot/ankle region and was instructed to rest, elevate, and ice extremity. 3- patient received crutches and educated by the nurse. 4- patient was instructed to follow-up with a orthopedic doctor in 24 hours or if symptoms such as numbness, tingling, nausea, vomiting, chest pain, shortness of breath, fever or chills return to emergency room as soon as possible. 5- At time time of discharge, the patient does not seem toxic or ill in appearance. No acute signs of distress noted. Patient agrees to discharge treatment plan of care. No further questions noted by the patient. ED Disposition Clinical Impression: Ankle sprain Qualifiers: Encounter type: initial encounter Involved ligament of ankle: unspecified ligament Laterality: left Qualified Code(s): S93.402A - Sprain of unspecified ligament of left ankle, initial encounter Disposition: TO HOME OR SELFCARE Is pt being admited?: No Does the pt Need Aspirin: No Condition: Stable Instructions: Ibuprofen (By mouth), Ankle Sprain (ED), Crutch Instructions (ED) , RICE Therapy (ED) Additional Instructions: follow-up with a orthopedic doctor in 24 hours for possible MRI to rule out osteomyelitis or if symptoms such as numbness, tingling, nausea, vomiting, chest pain, shortness of breath, fever or chills return to emergency room as soon as possible. Rest, elevate, and ice extremity. Prescriptions: Ibuprofen [Motrin 600 MG tab] 600 mg PO Q8H PRN #30 tablet PRN Reason: Pain Referrals: PRIMARY CARE, [Primary Care Provider] - 3-5 Days STEPHEN YANG MD [Staff Physician] - 3-5 Days BERENICE BUNDY MD [Staff Physician] - 3-5 Days [facility] [Outside] - 3-5 Days [facility] [Outside] - 3-5 Days Forms: Work/School Release Form(ED) This documentation as recorded by the JIN urena PEARL,accurately reflects the service I personally performed and the decisions made by ,MIKA VASQUEZ, MICHELINE.
== END 2017-04-09 17:30 | disposition home or self-care (01) ==
LOC: ED 12:02
DX: S93.402A Sprain of unspecified ligament of left ankle, initial encounter (principal); X58.XXXA Exposure to other specified factors, initial encounter; Y93.9 Activity, unspecified; Y92.9 Unspecified place or not applicable; Y99.9 Unspecified external cause status

== ENCOUNTER 2017-05-24 12:44 | Emergency (ER) | payer SELFPAY ==
[2017-05-24 14:11] LABS: Bilirubin,Urine NEG (Negative); Blood,Urine NEG (Negative); Ketones,Urine NEG (Negative); Leukocyte Esterase,Urine LG (Negative); Mucus,Urine FEW /HPF; Nitrite,Urine NEG (Negative); Protein,Urine <15 mg/dL mg/dL (Negative); Urobilinogen,Urine < 2.0 mg/dL (<2.0); WBC,Urine < 1.0 /HPF (0.0-6.0)
--- NOTE | 2017-05-24 14:27 | Emergency Department Report ---
ED Female HPI - General Chief complaint: Urogenital-Female Stated complaint: BACK PAIN, ADOMINAL PAIN Time Seen by Provider: 05/24/17 14:25 Source: patient, family Mode of arrival: Ambulatory Limitations: No Limitations - History of Present Illness Initial comments: Patient here reports that she is having painful urination with fishy smell in vaginal discharge for 2 days. Patient says she is having pelvic pain and cramping with lower back pain. She is having urinary frequency. She reports her pain is 4-10 and feels crampy. She says she tried [id number] ibuprofen but it's not working. Last menstrual period was 05/10/2017. Denies any vaginal bleeding. Denies any nausea vomiting or fever or chills. Patient said when she had insurance she was seen by [facility] doctor and she had STD testing done 4 months ago she said she was negative for gonorrhea and chlamydia but they treated her before the test result came back. She also said that she was positive for sugar, on S and they treated her by given her pills to take and she just wants to make sure that the Trichomonas is gone. Because she said the discharge is a new discharge and it is not the same color as the one that she had when she was treated for Trichomonas. She said the discharge is whitish and have fishy odor. Patient says she is concerned that the Trichomonas did not clear up. MD Complaint: vaginal discharge, dysuria, pelvic pain, possible STD Onset/Timin -: days(s) Location: suprapubic Radiation: non-radiating Severity: mild Severity scale (0 -10): 4 Quality: cramping, burning Consistency: intermittent Improves with: none Worsens with: urination Are you Now?: No Last Menstrual Period: 05/10/17 EDC: 02/14/18 Associated Symptoms: vaginal discharge, abdominal pain, dysuria. denies: vaginal bleeding, nausea/vomiting, fever/chills, headaches, loss of appetite, hematuria, rash, seizure, shortness of breath, syncope, weakness - Related Data Sexually active: Yes Previous Rx's Medication Instructions Recorded Last Taken Type traMADol [Ultram] 50 mg PO Q6HR PRN #10 tablet 12/10/16 Unknown Rx HYDROcodone/APAP 7.5-325 [[place] 1 each PO Q6HR PRN #20 tablet 12/16/16 Unknown Rx 7.5/325] Levofloxacin [Levaquin TAB] 500 mg PO QDAY #5 tablet 12/16/16 Unknown Rx Ondansetron [Zofran Odt] 4 mg PO Q8HR #20 tab.rapdis 12/16/16 Unknown Rx HYDROcodone/APAP 5-325 [[place] 1 each PO Q6HR PRN #15 tablet 01/05/17 Unknown Rx 5/325] Naproxen [Naprosyn TAB] 500 mg PO BID #30 tablet 01/05/17 Unknown Rx Ondansetron [Zofran Odt] 4 mg PO Q8H PRN #20 tab.rapdis 01/05/17 Unknown Rx Azithromycin [Zithromax Z-GERARDO] 250 mg PO QDAY #1 pack 02/08/17 Unknown Rx Ibuprofen [Motrin] 600 mg PO Q8H PRN #25 tablet 02/08/17 Unknown Rx Ciprofloxacin HCl [Ciprofloxacin 500 mg PO Q12HR 7 Days 03/13/17 Unknown Rx TAB] Ibuprofen [Motrin 600 MG tab] 600 mg PO Q8H PRN #30 tablet 04/09/17 Unknown Rx Naproxen [Naprosyn TAB] 500 mg PO BID PRN 5 Days 05/24/17 Unknown Rx Nitrofurantoin Archer/M-Cryst 100 mg PO Q12HR 7 Days 05/24/17 Unknown Rx [Macrobid CAP] Phenazopyridine [Pyridium] 100 mg PO TID PRN #9 tab 05/24/17 Unknown Rx metroNIDAZOLE [Flagyl] 500 mg PO Q12HR #14 tab 05/24/17 Unknown Rx Allergies Allergy/AdvReac Type Severity Reaction Status Date / Time amoxicillin Allergy Hives Verified 03/13/17 11:07 Penicillins Allergy Hives Verified 03/13/17 11:07 sulfamethoxazole Allergy Hives Verified 03/13/17 11:07 [From Bactrim] trimethoprim [From Bactrim] Allergy Hives Verified 03/13/17 11:07 peanut butter Allergy Anaphylaxis Uncoded 03/13/17 11:07 ED Review of Systems ROS: Stated complaint: BACK PAIN, ADOMINAL PAIN Other details as noted in HPI Comment: All other systems reviewed and negative Constitutional: no symptoms reported Respiratory: no symptoms reported Cardiovascular: denies: chest pain, palpitations, dyspnea on exertion, edema, syncope Gastrointestinal: abdominal pain. denies: nausea, vomiting, diarrhea, constipation, hematemesis, melena, hematochezia Genitourinary: dysuria, frequency, discharge. denies: urgency, hematuria, abnormal menses Musculoskeletal: back pain. 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 tubes in ears - Family History Family history: hypertension - Social History Smoking Status: Current Every Day Smoker Substance Use Type: None - Medications Home Medications: Home Medications Medication Instructions Recorded Confirmed Last Taken Type traMADol [Ultram] 50 mg PO Q6HR PRN #10 tablet 12/10/16 Unknown Rx HYDROcodone/APAP 7.5-325 [[place] 1 each PO Q6HR PRN #20 tablet 12/16/16 Unknown Rx 7.5/325] Levofloxacin [Levaquin TAB] 500 mg PO QDAY #5 tablet 12/16/16 Unknown Rx Ondansetron [Zofran Odt] 4 mg PO Q8HR #20 tab.rapdis 12/16/16 Unknown Rx HYDROcodone/APAP 5-325 [[place] 1 each PO Q6HR PRN #15 tablet 01/05/17 Unknown Rx 5/325] Naproxen [Naprosyn TAB] 500 mg PO BID #30 tablet 01/05/17 Unknown Rx Ondansetron [Zofran Odt] 4 mg PO Q8H PRN #20 tab.rapdis 01/05/17 Unknown Rx Azithromycin [Zithromax Z-GERARDO] 250 mg PO QDAY #1 pack 02/08/17 Unknown Rx Ibuprofen [Motrin] 600 mg PO Q8H PRN #25 tablet 02/08/17 Unknown Rx Ciprofloxacin HCl [Ciprofloxacin 500 mg PO Q12HR 7 Days 03/13/17 Unknown Rx TAB] Ibuprofen [Motrin 600 MG tab] 600 mg PO Q8H PRN #30 tablet 04/09/17 Unknown Rx Naproxen [Naprosyn TAB] 500 mg PO BID PRN 5 Days 09/27/17 Unknown Rx Nitrofurantoin Archer/M-Cryst 100 mg PO Q12HR 7 Days 05/24/17 Unknown Rx [Macrobid CAP] Phenazopyridine [Pyridium] 100 mg PO TID PRN #9 tab 05/24/17 Unknown Rx metroNIDAZOLE [Flagyl] 500 mg PO Q12HR #14 tab 05/24/17 Unknown Rx ED Physical Exam - General Limitations: No Limitations General appearance: alert, in no apparent distress - Head Head exam: Present: atraumatic, normocephalic, normal inspection - Eye Eye exam: Present: normal appearance, PERRL, EOMI Pupils: Present: normal accommodation - ENT ENT exam: Present: normal exam, normal orophraynx, mucous membranes moist - Neck Neck exam: Present: normal inspection, full ROM. Absent: tenderness, meningismus, lymphadenopathy - Respiratory Respiratory exam: Present: normal lung sounds bilaterally. Absent: respiratory distress, chest wall tenderness, accessory muscle use - Cardiovascular Cardiovascular Exam: Present: regular rate, normal rhythm, normal heart sounds. Absent: systolic murmur, diastolic murmur - GI/Abdominal GI/Abdominal exam: Present: soft, normal bowel sounds. Absent: distended, tenderness, guarding, rebound, rigid, organomegaly, mass, bruit, pulsatile mass , hernia - External exam: Present: normal external exam. Absent: erythema, swelling, lesions, lacerations, ecchymosis, bleeding Speculum exam: Present: vaginal discharge, cervical discharge. Absent: erythema , vaginal bleeding, foreign body, tissue, laceration Bi-manual exam: Present: normal bi-manual exam. Absent: cervical motion tendernes, adnexal tenderness, adnexal mass, uterine enlargement, uterine tenderness - Expanded Exam Expanded Female exam: Absent: vaginal laceration, tissue present in vagina, herpetic lesions, vulvar erythema, vulvar tenderness, foreign body External exam: Present: normal Speculum exam: Present: cervical OS closed, vaginal discharge. Absent: vaginal bleeding - Extremities Exam Extremities exam: Present: normal inspection, full ROM, normal capillary refill , other ( No neurovascular compromise. No clubbing, cyanosis or edema. +2 pulses to all extremities). Absent: tenderness, pedal edema, joint swelling, calf tenderness - Back Exam Back exam: Present: normal inspection, full ROM. Absent: tenderness, CVA tenderness (R), CVA tenderness (L), muscle spasm, paraspinal tenderness, vertebral tenderness, rash noted - Neurological Exam Neurological exam: Present: alert, oriented X3, normal gait, reflexes normal. Absent: motor sensory deficit - Psychiatric Psychiatric exam: Present: normal affect, normal mood - Skin Skin exam: Present: warm, dry, intact, normal color. Absent: rash ED Course Vital Signs 05/24/17 05/24/17 12:58 17:22 Temperature 98.4 F Pulse Rate 66 Respiratory 18 Rate Blood Pressure 98/61 Blood Pressure 118/68 [Left] O2 Sat by Pulse 99 Oximetry - Reevaluation(s) Reevaluation #1: 05/24/17 17:25 She is stable. No distress at present. I discussed her wet prep result with her. Patient negative for Trichomonas and yeast. Positive for bacterial vaginosis. I discussed the patient that gonorrhea and chlamydia tests will take at least 5-7 days to be resulted that she needs to return to medical records department within 5-7 days with her ID to get results. I also inform her if test result is positive they'll call her and let her know. Patient was recently treated for gonorrhea and chlamydia and she says she wants to wait for results and did not want to be treated in the emergency room. He received Motrin in an emergency room and said it helped her pain some better pelvic pain is still there so I gave her Percocet 1 tablet by mouth in emergency room. I also discussed the patient that her urine showed that she has a urinary tract infection and also it was contaminated. Urine culture was sent. Urine test was negative. ED Medical Decision Making - Lab Data Lab Results 05/24/17 Range/Units 13:26 Urine Color Yellow (Yellow) Urine Turbidity Clear (Clear) Urine pH 7.0 (5.0-7.0) Ur Specific [place] 1.012 (1.003-1.030) Urine Protein <15 mg/dl (Negative) mg/dL Urine Glucose (UA) Neg (Negative) mg/dL Urine Ketones Neg (Negative) mg/dL Urine Blood Neg (Negative) Urine Nitrite Neg (Negative) Urine Bilirubin Neg (Negative) Urine Urobilinogen < 2.0 (<2.0) mg/dL Ur Leukocyte Esterase Lg (Negative) Urine WBC (Auto) < 1.0 (0.0-6.0) /HPF Urine RBC (Auto) 1.0 (0.0-6.0) /HPF U Epithel Cells (Auto) 23.0 H (0-13.0) /HPF Urine Mucus Few /HPF Urine HCG, Qual Negative (Negative) Urine culture sent Gonorrhea and Chlamydia test is pending Wet prep positive for bacterial vaginosis, negative for yeast and Trichomonas. - Medical Decision Making ED course: Patient here concerns about trichomonas that she was treated for by [facility]. She states that she was treated and she's not sure if trichomonas is clear the case she is having in urinary burning in, frequency pelvic cramping and back pain with foul-smelling discharge that started 2 days ago. Patient described discharge as being fishy in odor. Pelvic and bimanual exam done. Patient with vaginal and cervix discharge that is thin and white and with fishy odor. Otherwise normal exam. I discussed results of wet prep with patient which shows no Trichomonas, positive arterial vaginosis which is greater then 20 % clue cells and no yeast cells. I also discussed with her that her urine has a component that is positive for urinary tract infection and urine culture was sent. Patient had gonorrhea and chlamydia tests done and sent. I discussed with her that this result will be back in 5-7 days and I gave her the option to be treated in emergency room or to wait until test results come back. Patient says she wants to wait until test results come back. I discussed the patient that if test is positive she will be called and also she can come to medical records department with her ID to have results of her gonorrhea and chlamydia test if she is not called. I discussed the patient diagnosis and treatment plan and she voiced understanding. Patient was given Motrin 800 mg emergency room for pelvic cramping which she said helped a little but he didn't take her pain away completely. She was given Percocet 5/325 mg one tablet by mouth. Patient discharged home with her boyfriend stable condition with prescription for Pyridium, Flagyl, naproxen and Macrobid and to follow up with [facility] since she does not have a primary care physician. Critical care attestation.: If time is entered above; I have spent that time in minutes in the direct care of this critically ill patient, excluding procedure time. ED Disposition Clinical Impression: Pelvic pain, Bacterial vaginosis, Acute cystitis without hematuria, Dysuria, Foul smelling vaginal discharge Disposition: DC-01 TO HOME OR SELFCARE Is pt being admited?: No Does the pt Need Aspirin: No Condition: Stable Instructions: Bacterial Vaginosis (ED), Abdominal Pain (ED), Urinary Tract Infection in Women (ED), Dysuria (ED) Additional Instructions: Please practice safe sex Follow-up with your [facility] or [facility] for repeat STD in 7-10 days. You have bacterial vaginosis and will be treated for Flagyl You have a urinary tract infection and will be treated with Macrobid for 7 days. Please do not have any sexual activity for the next 2 weeks. test was negative. return to Hospital medical records department in 5-7 days if he did not get a call regarding your gonorrhea and chlamydia tests to get results. He will need to bring her ID. Prescriptions: metroNIDAZOLE [Flagyl] 500 mg PO Q12HR #14 tab Naproxen [Naprosyn TAB] 500 mg PO BID PRN 5 Days PRN Reason: Pain Nitrofurantoin Archer/M-Cryst [Macrobid CAP] 100 mg PO Q12HR 7 Days Phenazopyridine [Pyridium] 100 mg PO TID PRN #9 tab PRN Reason: URINE BURNING Referrals: [facility] [Outside] - 05/26/17 [facility] [Outside] - 7-10 days Forms: STI Treatment and Prevention, Work/School Release Form(ED)
[2017-05-24] MEDS ORDERED: MOTRIN PO ONE (15:27)
[2017-05-24] MEDS ORDERED: PERCOCET 5/325 PO ONE (17:17)
[2017-05-24 17:57] VITALS: BP 118/72
== END 2017-05-24 17:53 | disposition home or self-care (01) ==
LOC: ED 12:44
DX: N76.0 Acute vaginitis (principal); N30.00 Acute cystitis without hematuria; F17.210 Nicotine dependence, cigarettes, uncomplicated; Z88.1 Allergy status to other antibiotic agents; Z88.0 Allergy status to penicillin
CPT/HCPCS: 81001; 81025; 87086; 87210; 87591; 99284

== ENCOUNTER 2017-08-31 11:48 | Emergency (ER) | payer OTHER ==
[2017-08-31 13:40] VITALS: BP 110/82
[2017-08-31] MEDS ORDERED: MOTRIN PO ONE (13:51)
--- NOTE | 2017-08-31 13:54 | Emergency Department Report ---
Minor Respiratory - HPI Chief Complaint: Upper Respiratory Infection Stated Complaint: FLU LIKE SYMPTOMS Time Seen by Provider: 08/31/17 13:50 Duration: 2 Days Pain Location: Facial, Throat, Nose Severity: mild Minor Respiratory: Yes Rhinorrhea, Yes Sore Throat, Yes Able to Tolerate Fluids , Yes Ear Pain, Yes Cough, Yes Sick Contacts (known flu exp), Yes Fever, No Hemoptysis, No Chest Pain, No Shortness of Breath ED Review of Systems ROS: Stated complaint: FLU LIKE SYMPTOMS Other details as noted in HPI Comment: All other systems reviewed and negative Constitutional: chills, fever, malaise Eyes: eye discharge ENT: ear pain, throat pain Respiratory: cough ED Past Medical Hx - Past Medical History Hx Psychiatric Treatment: Yes (depression) Hx Asthma: Yes 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 tubes in ears - Social History Smoking Status: Former Smoker Substance Use Type: None - Medications Home Medications: Home Medications Medication Instructions Recorded Confirmed Last Taken Type Fluticasone [Flonase] 1 spray NS QDAY #1 bottle 08/31/17 Unknown Rx Oseltamivir [Tamiflu] 75 mg PO BID #10 cap 08/31/17 Unknown Rx Minor Respiratory Exam - Exam General: Vital signs noted. No distress. Alert and acting appropriately. HEENT: Yes Pharyngeal Erythema, Yes Moist Mucous Membranes, No Pharyngeal Exudates, No Rhinorrhea, No Conjuctival Injection, No Frontal Tenderness, No Maxillary Tenderness Ear: Neither TM Bulge, Neither TM Erythema, Neither EAC Pain, Neither EAC Discharge Neck: Yes Supple, No Adenopathy Lungs: Yes Good Air Exchange, Yes Cough, No Wheezes, No Ronchi, No Stridor, No Labored Respirations, No Retractions, No Use of Accessory Muscles, No Other Abnormal Lung Sounds Heart: Yes Regular, No Murmur Abdomen: Yes Normal Bowel Sounds, No Tenderness, No Peritoneal Signs Skin: No Rash, No Edema Neurologic: Alert and oriented, no deficits. Musculoskeletal: Unremarkable. ED Course Vital Signs 08/31/17 13:36 Temperature 99.5 F Pulse Rate 99 H Respiratory 18 Rate Blood Pressure 110/82 Blood Pressure 110/82 [Left] O2 Sat by Pulse 100 Oximetry - Reevaluation(s) Reevaluation #1: 08/31/17 13:57 known flu exposure 2 d of s/s non toxic taking po ambulatory medicated w motrin dc home w dc poc ED Medical Decision Making - Medical Decision Making see note - Differential Diagnosis known flu exp Critical care attestation.: If time is entered above; I have spent that time in minutes in the direct care of this critically ill patient, excluding procedure time. ED Disposition Clinical Impression: Influenza Disposition: DC-01 TO HOME OR SELFCARE Is pt being admited?: No Does the pt Need Aspirin: No Condition: Stable Instructions: Influenza (ED) Additional Instructions: rest fluids meds as ordered today OVER THE COUNTER MOTRIN OR TYLENOL FOR FEVER OR BODY ACHES OVER THE COUNTER DELSYM FOR COUGH you have to treat the symptoms given the influenza exposure/flu good handwashing follow up PCP Monday to be sure you are improving see below return to er for fever > 101 that does not come down with motrin or tylenol Referrals: WENDY ALBA MD [Staff Physician] - 3-5 Days Time of Disposition: 13:52
== END 2017-08-31 14:12 | disposition home or self-care (01) ==
LOC: ED 11:48
DX: J11.1 Influenza due to unidentified influenza virus with other respiratory manifestations (principal); Z87.891 Personal history of nicotine dependence
CPT/HCPCS: 99282

== ENCOUNTER 2017-12-04 13:34 | Emergency (ER) | payer SELFPAY ==
[2017-12-04 13:41] VITALS: BP 123/85
[2017-12-04] MEDS ORDERED: MOTRIN PO ONE (15:26)
--- NOTE | 2017-12-04 15:27 | Emergency Department Report ---
ED Anxiety HPI - General Chief Complaint: Anxiety Stated Complaint: ANXIETY Time Seen by Provider: 12/04/17 15:26 Source: patient Mode of arrival: Ambulatory - History of Present Illness Initial Comments: This is a 27-year-old female nontoxic, well nourished in appearance, no acute signs of distress presents to the ED with c/o of anxiety 3 days. Patient stated she has a chronic anxiety issues last panic attack was about 1 year ago. Patient also complaining of left earache 2 days. Patient denies any hearing abnormalities or changes. Patient denies any mastoid tenderness. Patient denies any chest pain, shortness of breath, fever, chills, nausea, vomiting, headache or stiff neck. Patient states past medical history includes anxiety, asthma. MD Complaint: anxiety, heart racing -: days(s) (3) Symptoms: other (heart racing) Place: home Previous History of Same: Yes Severity: mild Quality: intermittant Provoking factors: none known Improves With: nothing Worsens With: nothing Associated symptoms: denies other symptoms. denies: chest pain, shortness of breath, palpitations, diaphoresis, confusion, cough, fever/chills, headaches, anorexia, malaise, nausea/vomiting, rash, seizure, syncope, weakness - Related Data Home Medications: Previous Rx's Medication Instructions Recorded Last Taken Type Fluticasone [Flonase] 1 spray NS QDAY #1 bottle 08/31/17 Unknown Rx Oseltamivir [Tamiflu] 75 mg PO BID #10 cap 08/31/17 Unknown Rx Clindamycin [Clindamycin CAP] 300 mg PO Q8H 7 Days cap 12/04/17 Unknown Rx hydrOXYzine PAMOATE [Vistaril] 50 mg PO Q6HR PRN #30 capsule 12/04/17 Unknown Rx Allergies/Adverse Reactions: Allergies Allergy/AdvReac Type Severity Reaction Status Date / Time amoxicillin Allergy Hives Verified 03/13/17 11:07 Penicillins Allergy Hives Verified 03/13/17 11:07 sulfamethoxazole Allergy Hives Verified 03/13/17 11:07 [From Bactrim] trimethoprim [From Bactrim] Allergy Hives Verified 03/13/17 11:07 peanut butter Allergy Anaphylaxis Uncoded 03/13/17 11:07 ED Review of Systems ROS: Stated complaint: ANXIETY Other details as noted in HPI Constitutional: denies: chills, fever Eyes: denies: eye pain, eye discharge, vision change ENT: ear pain. denies: throat pain Respiratory: denies: cough, shortness of breath, wheezing Cardiovascular: denies: chest pain, palpitations Endocrine: no symptoms reported Gastrointestinal: denies: abdominal pain, nausea, diarrhea Genitourinary: denies: urgency, dysuria, discharge Musculoskeletal: denies: back pain, joint swelling, arthralgia Skin: denies: rash, lesions Neurological: denies: headache, weakness, paresthesias Psychiatric: denies: anxiety, depression Hematological/Lymphatic: denies: easy bleeding, easy bruising ED Past Medical Hx - Past Medical History Hx Psychiatric Treatment: Yes (depression,anxiety) Hx Asthma: Yes Additional medical history: 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 tubes in ears - Social History Smoking Status: Former Smoker Substance Use Type: None - Medications Home Medications: Home Medications Medication Instructions Recorded Confirmed Last Taken Type Fluticasone [Flonase] 1 spray NS QDAY #1 bottle 08/31/17 Unknown Rx Oseltamivir [Tamiflu] 75 mg PO BID #10 cap 08/31/17 Unknown Rx Clindamycin [Clindamycin CAP] 300 mg PO Q8H 7 Days cap 12/04/17 Unknown Rx hydrOXYzine PAMOATE [Vistaril] 50 mg PO Q6HR PRN #30 capsule 12/04/17 Unknown Rx ED Physical Exam - General Limitations: No Limitations General appearance: alert, in no apparent distress - Head Head exam: Present: atraumatic, normocephalic - Eye Eye exam: Present: normal appearance Pupils: Present: normal accommodation - ENT ENT exam: Present: normal orophraynx, mucous membranes moist, normal external ear exam - Expanded ENT Exam Expanded Ear exam: Present: normal external inspection TM/Canal exam: Erythema: Left TM, Bulging: Left TM Mouth exam: Present: normal external inspection, tongue normal. Absent: drooling, trismus, muffled voice, tongue elevation, laceration Teeth exam: Present: normal inspection Throat exam: Positive: normal inspection. Negative: tonsillar erythema, tonsillomegaly, tonsillar exudate, R peritonsillar mass, L peritonsillar mass - Neck Neck exam: Present: normal inspection, full ROM. Absent: tenderness, meningismus - Respiratory Respiratory exam: Present: normal lung sounds bilaterally. Absent: respiratory distress, wheezes, rales, rhonchi, stridor, chest wall tenderness, accessory muscle use, decreased breath sounds, prolonged expiratory - Cardiovascular Cardiovascular Exam: Present: regular rate, normal rhythm, normal heart sounds. Absent: irregular rhythm, systolic murmur, diastolic murmur, rubs, gallop - GI/Abdominal GI/Abdominal exam: Present: soft, normal bowel sounds - Rectal Rectal exam: Present: deferred - Extremities Exam Extremities exam: Present: normal inspection, full ROM, normal capillary refill - Back Exam Back exam: Present: normal inspection, full ROM - Neurological Exam Neurological exam: Present: alert, oriented X3, normal gait - Psychiatric Psychiatric exam: Present: normal affect, normal mood - Skin Skin exam: Present: warm, dry, intact, normal color. Absent: rash ED Course Vital Signs 12/04/17 13:37 Temperature 98.8 F Pulse Rate 100 H Respiratory 18 Rate Blood Pressure 123/85 O2 Sat by Pulse 100 Oximetry - Reevaluation(s) Reevaluation #1: 12/04/17 15:49 Patient is speaking in full sentences with no signs of distress noted. ED Medical Decision Making - Medical Decision Making This is a 27-year-old female that presents with otitis media and anxiety. Patient is stable and was examined by me. Patient did receive Motrin and Vistaril which patient symptoms has improved and subsided. Patient denies any cardiac or respiratory symptoms. Normal cardiac assessment. Patient discharged with clinda and Vistaril due to allergies to PCN and interaction with azith/vistaril with QT prolonged. Patient was referred to Follow-up with a primary care doctor in 3-5 days or if symptoms worsen and continue return to emergency room as soon as possible. At time of discharge, the patient does not seem toxic or ill in appearance. No acute signs of distress noted. Patient agrees to discharge treatment plan of care. No further questions noted by the patient. Critical care attestation.: If time is entered above; I have spent that time in minutes in the direct care of this critically ill patient, excluding procedure time. ED Disposition Clinical Impression: Anxiety Left otitis media Qualifiers: Otitis media type: unspecified Qualified Code(s): H66.92 - Otitis media, unspecified, left ear Disposition: DC-01 TO HOME OR SELFCARE Is pt being admited?: No Does the pt Need Aspirin: No Condition: Stable Instructions: Otitis Media (ED), Anxiety (ED) Additional Instructions: Follow-up with a primary care doctor in 3-5 days or if symptoms worsen and continue return to emergency room as soon as possible. Prescriptions: Clindamycin [Clindamycin CAP] 300 mg PO Q8H 7 Days cap hydrOXYzine PAMOATE [Vistaril] 50 mg PO Q6HR PRN #30 capsule PRN Reason: Anxiety Referrals: PRIMARY CARE, [Primary Care Provider] - 3-5 Days VJ RAI MD [Staff Physician] - 3-5 Days [facility] [Outside] - [facility] - [facility]-5 Days Forms: Work/School Release Form(ED)
[2017-12-04] MEDS ORDERED: VISTARIL IM ONE (16:00)
== END 2017-12-04 16:15 | disposition home or self-care (01) ==
LOC: ED 13:34
DX: H66.92 Otitis media, unspecified, left ear (principal); J45.909 Unspecified asthma, uncomplicated; F41.9 Anxiety disorder, unspecified; F32.9 Major depressive disorder, single episode, unspecified; Z88.1 Allergy status to other antibiotic agents; Z87.891 Personal history of nicotine dependence; Z88.0 Allergy status to penicillin; Z88.2 Allergy status to sulfonamides; Z91.010 Allergy to peanuts
CPT/HCPCS: 96372; 99283; J3410

== ENCOUNTER 2018-01-10 11:51 | Emergency (ER) | payer SELFPAY ==
[2018-01-10 12:34] VITALS: BP 99/72
[2018-01-10] MEDS ORDERED: FIORICET PO ONE (15:04)
--- NOTE | 2018-01-10 15:10 | Emergency Department Report ---
ED General Adult HPI - General Chief complaint: Upper Respiratory Infection Stated complaint: ALLERGY SYMPTOMS Time Seen by Provider: 01/10/18 14:42 Source: patient Mode of arrival: Ambulatory Limitations: No Limitations - History of Present Illness Initial comments: Patient presents to emergency department with complaint of a headache. Patient states she fell about 5 days ago cleaning the house and hit her head on the hardwood floor. Patient states since that time she's had a headache with nausea and difficulty focusing. Patient also complains of nasal congestion and ear pain for the last 2 days as well. -: Sudden Location: head Severity scale (0 -10): 6 Quality: aching Consistency: constant Improves with: none Worsens with: other (bright lights) Associated Symptoms: nausea/vomiting Treatments Prior to Arrival: none - Related Data Previous Rx's Medication Instructions Recorded Last Taken Type Fluticasone [Flonase] 1 spray NS QDAY #1 bottle 08/31/17 Unknown Rx Oseltamivir [Tamiflu] 75 mg PO BID #10 cap 08/31/17 Unknown Rx Clindamycin [Clindamycin CAP] 300 mg PO Q8H 7 Days cap 12/04/17 Unknown Rx hydrOXYzine PAMOATE [Vistaril] 50 mg PO Q6HR PRN #30 capsule 12/04/17 Unknown Rx Butalb/Acetamin/Caff 50-325-40 1 tab PO Q6HR PRN #24 tab 01/10/18 Unknown Rx [Fioricet] Ondansetron [Zofran Odt] 4 mg PO Q6HR PRN #20 tab.rapdis 01/10/18 Unknown Rx Allergies Allergy/AdvReac Type Severity Reaction Status Date / Time amoxicillin Allergy Hives Verified 01/10/18 12:28 Penicillins Allergy Hives Verified 01/10/18 12:28 sulfamethoxazole Allergy Hives Verified 01/10/18 12:28 [From Bactrim] trimethoprim [From Bactrim] Allergy Hives Verified 01/10/18 12:28 peanut butter Allergy Anaphylaxis Uncoded 03/13/17 11:07 ED Review of Systems ROS: Stated complaint: ALLERGY SYMPTOMS Other details as noted in HPI Constitutional: other (congestion). denies: chills, fever Eyes: denies: eye pain, eye discharge, vision change ENT: other (headache). denies: ear pain, throat pain Respiratory: denies: cough, shortness of breath, wheezing Cardiovascular: denies: chest pain, palpitations Endocrine: no symptoms reported Gastrointestinal: denies: abdominal pain, nausea, diarrhea Genitourinary: denies: urgency, dysuria, discharge Musculoskeletal: denies: back pain, joint swelling, arthralgia Skin: denies: rash, lesions Neurological: denies: headache, weakness, paresthesias Psychiatric: denies: anxiety, depression Hematological/Lymphatic: denies: easy bleeding, easy bruising ED Past Medical Hx - Past Medical History Hx Psychiatric Treatment: Yes (depression,anxiety) Hx Asthma: Yes Additional medical history: 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 tubes in ears - Social History Smoking Status: Never Smoker Substance Use Type: None - Medications Home Medications: Home Medications Medication Instructions Recorded Confirmed Last Taken Type Fluticasone [Flonase] 1 spray NS QDAY #1 bottle 08/31/17 Unknown Rx Oseltamivir [Tamiflu] 75 mg PO BID #10 cap 08/31/17 Unknown Rx Clindamycin [Clindamycin CAP] 300 mg PO Q8H 7 Days cap 12/04/17 Unknown Rx hydrOXYzine PAMOATE [Vistaril] 50 mg PO Q6HR PRN #30 capsule 12/04/17 Unknown Rx Butalb/Acetamin/Caff 50-325-40 1 tab PO Q6HR PRN #24 tab 01/10/18 Unknown Rx [Fioricet] Ondansetron [Zofran Odt] 4 mg PO Q6HR PRN #20 tab.rapdis 01/10/18 Unknown Rx ED Physical Exam - General Limitations: No Limitations General appearance: alert, in no apparent distress - Head Head exam: Present: atraumatic, normocephalic - Eye Eye exam: Present: normal appearance Pupils: Present: other (patient has cobblestoning of the palpebral conjunctiva) - ENT ENT exam: Present: mucous membranes moist, other (fluid behind tympanic membranes. No frontal or maxillary sinus tenderness. Pale and thin nasal mucosal) - Neck Neck exam: Present: normal inspection - Respiratory Respiratory exam: Present: normal lung sounds bilaterally. Absent: respiratory distress - Cardiovascular Cardiovascular Exam: Present: regular rate, normal rhythm. Absent: systolic murmur, diastolic murmur, rubs, gallop - GI/Abdominal GI/Abdominal exam: Present: soft, normal bowel sounds - Extremities Exam Extremities exam: Present: normal inspection - Back Exam Back exam: Present: normal inspection - Neurological Exam Neurological exam: Present: alert, oriented X3 - Psychiatric Psychiatric exam: Present: normal affect, normal mood - Skin Skin exam: Present: warm, dry, intact, normal color. Absent: rash ED Course Vital Signs 01/10/18 01/10/18 12:29 14:39 Temperature 98.3 F Pulse Rate 85 Respiratory 18 12 Rate Blood Pressure 99/72 O2 Sat by Pulse 97 Oximetry ED Medical Decision Making - Medical Decision Making Discussed with patient precautions for concussions Discussed with patient the need to continue the use of Flonase and antihistamine medication Critical care attestation.: If time is entered above; I have spent that time in minutes in the direct care of this critically ill patient, excluding procedure time. ED Disposition Clinical Impression: Concussion, Congestion of both ears Disposition: DC- TO HOME OR SELFCARE Is pt being admited?: No Does the pt Need Aspirin: No Condition: Stable Instructions: Concussion (ED) Additional Instructions: Return if worse Prescriptions: Butalb/Acetamin/Caff 50-325-40 [Fioricet] 1 tab PO Q6HR PRN #24 tab PRN Reason: Headache Ondansetron [Zofran Odt] 4 mg PO Q6HR PRN #20 tab.rapdis PRN Reason: Nausea Referrals: PRIMARY MD ISABELA [Primary Care Provider] - 3-5 Days DARIUSZ MALONE MD [Staff Physician] - 3-5 Days [facility] [Outside] - 3-5 Days Time of Disposition: 15:15
== END 2018-01-10 15:34 | disposition home or self-care (01) ==
LOC: ED 11:51
DX: S06.0X9A Concussion with loss of consciousness of unspecified duration, initial encounter (principal); H83.8X3 Other specified diseases of inner ear, bilateral; F32.9 Major depressive disorder, single episode, unspecified; F41.9 Anxiety disorder, unspecified; J45.909 Unspecified asthma, uncomplicated; Z88.1 Allergy status to other antibiotic agents; Z88.0 Allergy status to penicillin; Z88.2 Allergy status to sulfonamides; Z91.010 Allergy to peanuts; W18.39XA Other fall on same level, initial encounter; Y93.E3 Activity, vacuuming; Y99.8 Other external cause status; Y92.099 Unspecified place in other non-institutional residence as the place of occurrence of the external cause
CPT/HCPCS: 99282

== ENCOUNTER 2018-01-12 08:45 | Emergency (ER) | payer OTHER ==
[2018-01-12 09:44] LABS: Hemoglobin 14.6 gm/dl (10.1-14.3); Mean Corpuscular HGB Conc 33 % (30-34); Mean Corpuscular Hemoglobin 31 pg (28-32); Mean Corpuscular Volume 94 fl (79-97); Platelet Count 215 K/mm3 (140-440); Red Blood Count 4.68 M/mm3 (3.65-5.03); Red Cell Distribution Width 12.5 % (13.2-15.2)
[2018-01-12] MEDS ORDERED: TORADOL IV ONE (10:08)
[2018-01-12] MEDS ORDERED: ZOFRAN IV ONE (10:08)
[2018-01-12] MEDS ORDERED: NACL 0.9% 1000 ML 1,000 ML IV ONE (10:08)
--- NOTE | 2018-01-12 10:14 | Emergency Department Report ---
Amie Doc - Documentation Documentation: Patient is a 27-year-old female who is a frequent patient here in the emergency department who is coming in with headache. Patient states for the last month she has had almost daily headaches that she states is accompanied with photophobia and nausea vomiting. Patient states is global. Patient states she's had 3-5 episodes of syncope as well. Patient states that they're random occurrences of syncope. Patient states she has hit her head in the last month as well. Patient states she has never seen a neurologist for these headaches and she has not had CAT scan of the head for these headaches. Patient denies any fever or neck stiffness cough cold congestion abdominal pain. Because the patient is never had CT of the head for these headaches were do a CT of the head to establish baseline. Patient was moved to a treatment room for IV fluids Toradol and Zofran. A
--- NOTE | 2018-01-12 11:04 | Cat Scan Report ---
CT scan of head without IV contrast: History: Headache, closed head injury. Findings: Ventricles are normal in size and midline in location. No evidence of acute ischemia, hemorrhage or mass. No extra axial fluid collection. Normal brainstem and cerebellum. Normal visualized sinuses and mastoid air cells. Impression: No acute intracranial abnormality.
[2018-01-12 11:09] LABS: Alanine Aminotransferase 11 units/L (7-56); Albumin 4.6 g/dL (3.9-5); BUN/Creatinine Ratio 17; Blood Urea Nitrogen 10 mg/dL (7-17); Calcium 9.2 mg/dL (8.4-10.2); Hemolysis Index 20
[2018-01-12 11:22] VITALS: BP 92/64
[2018-01-12] MEDS ORDERED: BENADRYL IV ONE (11:28)
[2018-01-12] MEDS ORDERED: REGLAN IV ONE (11:28)
--- NOTE | 2018-01-12 11:38 | Emergency Department Report ---
ED Headache HPI - General Chief Complaint: Syncope Stated Complaint: HEADACHE/NAUSEA/VOMITING Time Seen by Provider: 01/12/18 09:59 - History of Present Illness Initial Comments: 27-year-old female past medical history heart as this child, asthma presents with complaint of headache. Patient states she has had intermittent headaches for several days. States she had a brief episode of loss of consciousness last week. Patient was seen in the ED 2 days ago. Patient is currently awake alert and oriented 3 fully lucid. Denies fevers or chills. Denies any current nausea. Patient is ambulatory. Timing/Duration: episodic, waxing and waning Quality: moderate Head Injury Location: frontal Allergies/Adverse Reactions: Allergies amoxicillin Allergy (Verified 01/10/18 12:28) Hives Penicillins Allergy (Verified 01/10/18 12:28) Hives sulfamethoxazole [From Bactrim] Allergy (Verified 01/10/18 12:28) Hives trimethoprim [From Bactrim] Allergy (Verified 01/10/18 12:28) Hives peanut butter Allergy (Uncoded 03/13/17 11:07) Anaphylaxis Home Medications: Ambulatory Orders Fluticasone [Flonase] 1 spray NS QDAY #1 bottle 08/31/17 Oseltamivir [Tamiflu] 75 mg PO BID #10 cap 08/31/17 Clindamycin [Clindamycin CAP] 300 mg PO Q8H 7 Days cap 12/04/17 hydrOXYzine PAMOATE [Vistaril] 50 mg PO Q6HR PRN #30 capsule 12/04/17 Butalb/Acetamin/Caff 50-325-40 [Fioricet] 1 tab PO Q6HR PRN #24 tab 01/10/18 Ondansetron [Zofran Odt] 4 mg PO Q6HR PRN #20 tab.rapdis 01/10/18 Ibuprofen [Motrin] 800 mg PO Q8HR PRN #20 tablet 01/12/18 ED Review of Systems ROS: Stated complaint: HEADACHE/NAUSEA/VOMITING Other details as noted in HPI Constitutional: denies: chills, fever Eyes: denies: eye pain, eye discharge, vision change ENT: denies: ear pain, throat pain Respiratory: denies: cough, shortness of breath, wheezing Cardiovascular: denies: chest pain, palpitations Endocrine: no symptoms reported Gastrointestinal: denies: abdominal pain, nausea, diarrhea Genitourinary: denies: urgency, dysuria, discharge Musculoskeletal: denies: back pain, joint swelling, arthralgia Skin: denies: rash, lesions Neurological: headache. 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 tubes in ears - Social History Smoking Status: Current Every Day Smoker Substance Use Type: None - Medications Home Medications: Home Medications Medication Instructions Recorded Confirmed Last Taken Type Fluticasone [Flonase] 1 spray NS QDAY #1 bottle 08/31/17 Unknown Rx Oseltamivir [Tamiflu] 75 mg PO BID #10 cap 08/31/17 Unknown Rx Clindamycin [Clindamycin CAP] 300 mg PO Q8H 7 Days cap 12/04/17 Unknown Rx hydrOXYzine PAMOATE [Vistaril] 50 mg PO Q6HR PRN #30 capsule 12/04/17 Unknown Rx Butalb/Acetamin/Caff 50-325-40 1 tab PO Q6HR PRN #24 tab 01/10/18 Unknown Rx [Fioricet] Ondansetron [Zofran Odt] 4 mg PO Q6HR PRN #20 tab.rapdis 01/10/18 Unknown Rx Ibuprofen [Motrin] 800 mg PO Q8HR PRN #20 tablet 01/12/18 Unknown Rx ED Physical Exam - General Limitations: No Limitations General appearance: alert, in no apparent distress - Head Head exam: Present: atraumatic, normocephalic - Eye Eye exam: Present: normal appearance - ENT ENT exam: Present: mucous membranes moist - Neck Neck exam: Present: normal inspection - Respiratory Respiratory exam: Present: normal lung sounds bilaterally. Absent: respiratory distress - Cardiovascular Cardiovascular Exam: Present: regular rate, normal rhythm. Absent: systolic murmur, diastolic murmur, rubs, gallop - GI/Abdominal GI/Abdominal exam: Present: soft, normal bowel sounds - Extremities Exam Extremities exam: Present: normal inspection - Back Exam Back exam: Present: normal inspection - Neurological Exam Neurological exam: Present: alert, oriented X3 - Psychiatric Psychiatric exam: Present: normal affect, normal mood - Skin Skin exam: Present: warm, dry, intact, normal color. Absent: rash ED Course Vital Signs 01/12/18 01/12/18 09:02 11:21 Temperature 98.1 F 97.8 F Pulse Rate 68 86 Respiratory 16 18 Rate Blood Pressure 98/61 Blood Pressure 92/64 [Right] O2 Sat by Pulse 98 99 Oximetry ED Medical Decision Making - Lab Data Result diagrams: 01/12/18 09:26 01/12/18 09:26 - Medical Decision Making A/P: Headache 1-CT unremarkable, labs unremarkable 2-no overt neurological deficits on exam 3-follow-up with primary care and neurology 4- Critical care attestation.: If time is entered above; I have spent that time in minutes in the direct care of this critically ill patient, excluding procedure time. ED Disposition Clinical Impression: Headache Qualifiers: Headache type: unspecified Headache chronicity pattern: acute headache Intractability: not intractable Qualified Code(s): R51 - Headache Disposition: DC-01 TO HOME OR SELFCARE Is pt being admited?: No Does the pt Need Aspirin: No Condition: Stable Instructions: Acute Headache (ED) Prescriptions: Ibuprofen [Motrin] 800 mg PO Q8HR PRN #20 tablet PRN Reason: Headache Referrals: CHARMAINE KRAMER MD [Staff Physician] - 3-5 Days [facility] [Provider Group] - 3-5 Days Forms: Work/School Release Form(ED) Time of Disposition: 11:37
== END 2018-01-12 12:11 | disposition home or self-care (01) ==
LOC: ED 08:45
DX: R51 Headache (principal); J45.909 Unspecified asthma, uncomplicated; F17.200 Nicotine dependence, unspecified, uncomplicated; F32.9 Major depressive disorder, single episode, unspecified; F41.9 Anxiety disorder, unspecified; Z88.1 Allergy status to other antibiotic agents; Z88.0 Allergy status to penicillin; Z88.2 Allergy status to sulfonamides; Z91.010 Allergy to peanuts; Z91.011 Allergy to milk products
CPT/HCPCS: 36415; 70450; 80053; 84703; 85027; 93005; 93010; 96361; 96374; 96375; 99284; J1200; J1885; J2405; J2765; J7030

== ENCOUNTER 2018-01-29 14:49 | Emergency (ER) | payer SELFPAY ==
[2018-01-29 15:03] VITALS: BP 106/77
[2018-01-29 15:34] LABS: Basophils % (Auto) 0.6 % (0.0-1.8); Eosinophils # (Auto) 0.1 K/mm3 (0.0-0.4); Eosinophils % (Auto) 0.9 % (0.0-4.3); Hematocrit 40.9 % (30.3-42.9); Hemoglobin 14.1 gm/dl (10.1-14.3); Lymphocytes # (Auto) 1.5 K/mm3 (1.2-5.4); Lymphocytes % (Auto) 27.1 % (13.4-35.0); Mean Corpuscular HGB Conc 35 % (30-34); Mean Corpuscular Hemoglobin 32 pg (28-32); Mean Corpuscular Volume 92 fl (79-97); Monocytes # (Auto) 0.4 K/mm3 (0.0-0.8); Monocytes % (Auto) 7.4 % (0.0-7.3); Platelet Count 190 K/mm3 (140-440); Red Blood Count 4.43 M/mm3 (3.65-5.03); Red Cell Distribution Width 12.4 % (13.2-15.2)
[2018-01-29 16:08] LABS: Alanine Aminotransferase 12 units/L (7-56); Albumin 4.5 g/dL (3.9-5); BUN/Creatinine Ratio 14; Blood Urea Nitrogen 7 mg/dL (7-17); Calcium 9.1 mg/dL (8.4-10.2); Hemolysis Index 6
[2018-01-29] MEDS ORDERED: ZOFRAN ODT ONE (23:02)
[2018-01-30] MEDS ORDERED: ZOFRAN ODT PO ONE (00:33)
== END 2018-01-30 00:23 | disposition left against medical advice (07) ==
LOC: ED 14:49
DX: F41.0 Panic disorder [episodic paroxysmal anxiety] (principal); Z53.21 Procedure and treatment not carried out due to patient leaving prior to being seen by health care provider
CPT/HCPCS: 36415; 80053; 85025; Q0162

== ENCOUNTER 2018-01-30 20:03 | Emergency (ER) | payer SELFPAY ==
--- NOTE | 2018-01-30 21:20 | Emergency Department Report ---
ED General Adult HPI - General Chief complaint: Anxiety Stated complaint: ALLERGIC REACTION Time Seen by Provider: 01/30/18 20:51 Source: EMS Mode of arrival: Ambulatory Limitations: No Limitations - History of Present Illness Initial comments: Patient is 27 years old female with history of asthma. Patient presented to the ER complaining off panic attack. Patient stated that she was recently diagnosed with UTI, she is currently taking Cipro and Pyridium. She stated that they give a medicine called hydroxy for the panic attack and S was causing heart to have more tightness in her chest. Patient denied any shortness of breath, fever, nausea or vomiting. She is having a left lower quadrant pain. She denied any diarrhea. - Related Data Previous Rx's Medication Instructions Recorded Last Taken Type Fluticasone [Flonase] 1 spray NS QDAY #1 bottle 08/31/17 Unknown Rx Oseltamivir [Tamiflu] 75 mg PO BID #10 cap 08/31/17 Unknown Rx Clindamycin [Clindamycin CAP] 300 mg PO Q8H 7 Days cap 12/04/17 Unknown Rx hydrOXYzine PAMOATE [Vistaril] 50 mg PO Q6HR PRN #30 capsule 12/04/17 Unknown Rx Butalb/Acetamin/Caff 50-325-40 1 tab PO Q6HR PRN #24 tab 01/10/18 Unknown Rx [Fioricet] Ondansetron [Zofran Odt] 4 mg PO Q6HR PRN #20 tab.rapdis 01/10/18 Unknown Rx Ibuprofen [Motrin] 800 mg PO Q8HR PRN #20 tablet 01/12/18 Unknown Rx Allergies Allergy/AdvReac Type Severity Reaction Status Date / Time amoxicillin Allergy Hives Verified 01/30/18 20:42 Penicillins Allergy Hives Verified 01/30/18 20:42 sulfamethoxazole Allergy Hives Verified 01/30/18 20:42 [From Bactrim] trimethoprim [From Bactrim] Allergy Hives Verified 01/30/18 20:42 peanut butter Allergy Anaphylaxis Uncoded 03/13/17 11:07 ED Review of Systems ROS: Stated complaint: ALLERGIC REACTION Other details as noted in HPI Comment: All other systems reviewed and negative Constitutional: denies: chills, fever Respiratory: denies: cough, orthopnea, shortness of breath Gastrointestinal: denies: abdominal pain, nausea, vomiting, diarrhea, constipation, hematemesis, hematochezia Genitourinary: hematuria. 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 tubes in ears - Social History Smoking Status: Unknown if ever smoked Substance Use Type: None - Medications Home Medications: Home Medications Medication Instructions Recorded Confirmed Last Taken Type Fluticasone [Flonase] 1 spray NS QDAY #1 bottle 08/31/17 Unknown Rx Oseltamivir [Tamiflu] 75 mg PO BID #10 cap 08/31/17 Unknown Rx Clindamycin [Clindamycin CAP] 300 mg PO Q8H 7 Days cap 12/04/17 Unknown Rx hydrOXYzine PAMOATE [Vistaril] 50 mg PO Q6HR PRN #30 capsule 12/04/17 Unknown Rx Butalb/Acetamin/Caff 50-325-40 1 tab PO Q6HR PRN #24 tab 01/10/18 Unknown Rx [Fioricet] Ondansetron [Zofran Odt] 4 mg PO Q6HR PRN #20 tab.rapdis 01/10/18 Unknown Rx Ibuprofen [Motrin] 800 mg PO Q8HR PRN #20 tablet 01/12/18 Unknown Rx ED Physical Exam - General Limitations: No Limitations General appearance: alert, in no apparent distress - Head Head exam: Present: atraumatic, normocephalic, normal inspection - ENT ENT exam: Present: normal exam, normal orophraynx, mucous membranes moist, TM's normal bilaterally - Neck Neck exam: Present: normal inspection, full ROM. Absent: tenderness, meningismus, lymphadenopathy, thyromegaly - Respiratory Respiratory exam: Present: normal lung sounds bilaterally. Absent: respiratory distress, wheezes, rales, rhonchi, stridor, chest wall tenderness, accessory muscle use, decreased breath sounds, prolonged expiratory - Cardiovascular Cardiovascular Exam: Present: regular rate, normal rhythm, normal heart sounds - GI/Abdominal GI/Abdominal exam: Present: soft, tenderness (suprapubic tenderness), normal bowel sounds. Absent: distended, guarding, rebound, rigid, organomegaly, mass, bruit, pulsatile mass, hernia - Extremities Exam Extremities exam: Present: normal inspection, full ROM, normal capillary refill - Back Exam Back exam: Present: normal inspection, full ROM. Absent: tenderness, CVA tenderness (R), CVA tenderness (L), muscle spasm, paraspinal tenderness, vertebral tenderness, rash noted - Neurological Exam Neurological exam: Present: alert, oriented X3, CN II-XII intact, normal gait - Skin Skin exam: Present: warm, intact, normal color ED Course Vital Signs 01/30/18 01/30/18 20:10 20:12 Temperature 97.8 F Pulse Rate 80 80 Respiratory 16 Rate Blood Pressure 112/61 112/61 O2 Sat by Pulse 100 99 Oximetry - Reevaluation(s) Reevaluation #1: 01/30/18 23:57 Patient stated that she is feeling much better. No nausea or vomiting. No abdominal pain. I advised patient to follow up with her primary care physician in the next 2-3 days and to return to the ER if her symptoms are not improving. ED Medical Decision Making - Lab Data Result diagrams: 01/30/18 21:21 01/30/18 21:21 Critical care attestation.: If time is entered above; I have spent that time in minutes in the direct care of this critically ill patient, excluding procedure time. ED Disposition Clinical Impression: UTI (urinary tract infection), Abdominal pain Disposition: DC-01 TO HOME OR SELFCARE Is pt being admited?: No Condition: Stable Instructions: Urinary Tract Infection in Women (ED), Abdominal Pain (ED) Referrals: PRIMARY CARE, [Primary Care Provider] - 3-5 Days
[2018-01-30] MEDS ORDERED: VASELINE LIP THERAPY TP ONE (21:49)
[2018-01-30] MEDS ORDERED: VASELINE LIP THERAPY TP PRN (21:49)
[2018-01-30 21:53] LABS: Bilirubin,Urine NEG (Negative); Blood,Urine NEG (Negative); Color,Urine Amber (Yellow); HCG Qualitative,Urine Negative (Negative); Mucus,Urine FEW /HPF; Protein,Urine <15 mg/dL mg/dL (Negative)
[2018-01-30 21:54] LABS: Basophils % (Auto) 0.6 % (0.0-1.8); Eosinophils # (Auto) 0.1 K/mm3 (0.0-0.4); Eosinophils % (Auto) 1.4 % (0.0-4.3); Hematocrit 40.7 % (30.3-42.9); Lymphocytes # (Auto) 1.9 K/mm3 (1.2-5.4); Lymphocytes % (Auto) 33.8 % (13.4-35.0); Mean Corpuscular HGB Conc 34 % (30-34); Mean Corpuscular Hemoglobin 32 pg (28-32); Mean Corpuscular Volume 93 fl (79-97); Monocytes # (Auto) 0.4 K/mm3 (0.0-0.8); Monocytes % (Auto) 7.5 % (0.0-7.3); Platelet Count 189 K/mm3 (140-440); Red Blood Count 4.38 M/mm3 (3.65-5.03); Red Cell Distribution Width 12.6 % (13.2-15.2)
[2018-01-30 22:05] LABS: Alanine Aminotransferase 10 units/L (7-56); Albumin 4.3 g/dL (3.9-5); BUN/Creatinine Ratio 20; Blood Urea Nitrogen 10 mg/dL (7-17); Calcium 8.7 mg/dL (8.4-10.2); Hemolysis Index 10
[2018-01-30] MEDS ORDERED: TORADOL IV ONE (22:33)
[2018-01-31 01:00] VITALS: BP 114/62
== END 2018-01-31 | disposition home or self-care (01) ==
LOC: ED 20:03
DX: N39.0 Urinary tract infection, site not specified (principal); J45.909 Unspecified asthma, uncomplicated; F32.9 Major depressive disorder, single episode, unspecified; F41.9 Anxiety disorder, unspecified; Z88.1 Allergy status to other antibiotic agents; Z88.0 Allergy status to penicillin; Z88.2 Allergy status to sulfonamides; Z91.010 Allergy to peanuts
CPT/HCPCS: 36415; 80053; 81001; 81025; 85025; 96374; 99283; J1885

== ENCOUNTER 2019-11-13 14:45 | Emergency (ER) | payer SELFPAY ==
--- NOTE | 2019-11-13 15:43 | Event Note ---
ED Screening Note Date of service: 11/13/19 Time: 15:42 ED Screening Note: 29 y o female presents with shoulder back pain s /p fall offa high truck last night cant lift shoulder cc of neck stiff ness fell on right side This initial assessment/diagnostic orders/clinical plan/treatment(s) is/are subject to change based on patients health status, clinical progression and re- assessment by fellow clinical providers in the ED. Further treatment and workup at subsequent clinical providers discretion. Patient/guardian urged not to elope from the ED as their condition may be serious if not clinically assessed and managed. Initial orders include: xr r Shouldeer
[2019-11-13 15:44] VITALS: BP 106/67
--- NOTE | 2019-11-13 16:02 | XRay Report ---
XR shoulder 2+V RT INDICATION / CLINICAL INFORMATION: Right shoulder pain after trauma. COMPARISON: None available. FINDINGS: BONES/JOINT(S): No acute fracture or subluxation. No significant degenerative changes. SOFT TISSUES: No significant abnormality. ADDITIONAL FINDINGS: None. Signer Name: Alan Gomez MD Signed: 11/13/2019 3:57 PM Workstation Name: [id number]
[2019-11-13] MEDS ORDERED: HYDROcodone/ACETAMINOPHEN 10-325MG TAB PO ONE (16:21)
--- NOTE | 2019-11-13 16:59 | Emergency Department Report ---
ED Fall HPI - General Chief Complaint: Shoulder Injury Stated Complaint: FALL/RT SHOULDE PAIN Time Seen by Provider: 11/13/19 16:13 Source: patient Mode of arrival: Ambulatory - History of Present Illness Initial Comments: This is a 29-year-old female nontoxic, well nourished in appearance, no acute signs of distress presents to the ED with c/o of right shoulder pain and neck p ain 1 day. Patient stated that she had a trip and fall and landed on her right shoulder area. Patient denies any other trauma. Denies any head trauma. Patient denies any other pain or complaints. Patient denies any numbness, tingling, fever, chills, nausea, vomiting, chest pain, shortness of breath, headache, stiff neck. Patient denies any joint swelling or joint redness. Patient has some decreased range of motion. MD Complaint: fall -: days(s) When Fall Occurred: unsure Fall Witnessed: no Loss of Consciousness: none Prolonged Down Time?: no Symptoms Prior to Fall: none Location: neck Location - Extremities: Right: Shoulder Severity: mild Severity scale (0 -10): 8 Quality: aching Context: tripped/slipped Associated Symptoms: neck pain. denies: headache, numbness, weakness, chest paint, shortness of breath, abdominal pain, hematuria, unable to walk, lightheaded, vertigo, confusion - Related Data Previous Rx's Medication Instructions Recorded Last Taken Type Fluticasone [Flonase] 1 spray NS QDAY #1 bottle 08/31/17 Unknown Rx Oseltamivir [Tamiflu] 75 mg PO BID #10 cap 08/31/17 Unknown Rx Clindamycin [Clindamycin CAP] 300 mg PO Q8H 7 Days cap 12/04/17 Unknown Rx hydrOXYzine PAMOATE [Vistaril] 50 mg PO Q6HR PRN #30 capsule 12/04/17 Unknown Rx Butalb/Acetamin/Caff 50-325-40 1 tab PO Q6HR PRN #24 tab 01/10/18 Unknown Rx [Fioricet] Ondansetron [Zofran Odt] 4 mg PO Q6HR PRN #20 tab.rapdis 01/10/18 Unknown Rx Ibuprofen [Motrin] 800 mg PO Q8HR PRN #20 tablet 01/12/18 Unknown Rx Ondansetron [Zofran Odt] 4 mg PO Q8HR PRN #14 tab.rapdis 01/30/18 Unknown Rx traMADoL [Ultram 50 MG tab] 50 mg PO Q4HR PRN #14 tablet 01/30/18 Unknown Rx Cyclobenzaprine [Flexeril] 10 mg PO QHS PRN #10 tablet 11/13/19 Unknown Rx Naproxen 500 mg PO Q12H PRN #20 tablet 11/13/19 Unknown Rx Allergies Allergy/AdvReac Type Severity Reaction Status Date / Time amoxicillin Allergy Hives Verified 01/30/18 20:42 Penicillins Allergy Hives Verified 01/30/18 20:42 sulfamethoxazole Allergy Hives Verified 01/30/18 20:42 [From Bactrim] trimethoprim [From Bactrim] Allergy Hives Verified 01/30/18 20:42 peanut butter Allergy Anaphylaxis Uncoded 03/13/17 11:07 ED Review of Systems ROS: Stated complaint: FALL/RT SHOULDE PAIN Other details as noted in HPI Constitutional: denies: chills, fever Eyes: denies: eye pain, eye discharge, vision change ENT: denies: ear pain, throat pain Respiratory: denies: cough, shortness of breath, wheezing Cardiovascular: denies: chest pain, palpitations Endocrine: no symptoms reported Gastrointestinal: denies: abdominal pain, nausea, vomiting, diarrhea Genitourinary: denies: urgency, dysuria, discharge Musculoskeletal: back pain. 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 tubes in ears - Social History Smoking Status: Current Some Day Smoker Substance Use Type: None - Medications Home Medications: Home Medications Medication Instructions Recorded Confirmed Last Taken Type Fluticasone [Flonase] 1 spray NS QDAY #1 bottle 08/31/17 Unknown Rx Oseltamivir [Tamiflu] 75 mg PO BID #10 cap 08/31/17 Unknown Rx Clindamycin [Clindamycin CAP] 300 mg PO Q8H 7 Days cap 12/04/17 Unknown Rx hydrOXYzine PAMOATE [Vistaril] 50 mg PO Q6HR PRN #30 capsule 12/04/17 Unknown Rx Butalb/Acetamin/Caff 50-325-40 1 tab PO Q6HR PRN #24 tab 01/10/18 Unknown Rx [Fioricet] Ondansetron [Zofran Odt] 4 mg PO Q6HR PRN #20 tab.rapdis 01/10/18 Unknown Rx Ibuprofen [Motrin] 800 mg PO Q8HR PRN #20 tablet 01/12/18 Unknown Rx Ondansetron [Zofran Odt] 4 mg PO Q8HR PRN #14 tab.rapdis 01/30/18 Unknown Rx traMADoL [Ultram 50 MG tab] 50 mg PO Q4HR PRN #14 tablet 01/30/18 Unknown Rx Cyclobenzaprine [Flexeril] 10 mg PO QHS PRN #10 tablet 11/13/19 Unknown Rx Naproxen 500 mg PO Q12H PRN #20 tablet 11/13/19 Unknown Rx ED Physical Exam - General Limitations: No Limitations General appearance: alert, in no apparent distress - Head Head exam: Present: atraumatic, normocephalic - Eye Eye exam: Present: normal appearance, PERRL, EOMI - Neck Neck exam: Present: normal inspection, full ROM. Absent: tenderness, meningismus, lymphadenopathy - Respiratory Respiratory exam: Present: normal lung sounds bilaterally. Absent: respiratory distress, wheezes, rales, rhonchi, stridor, chest wall tenderness, accessory muscle use, decreased breath sounds, prolonged expiratory - Cardiovascular Cardiovascular Exam: Present: regular rate, normal rhythm, normal heart sounds. Absent: bradycardia, tachycardia, irregular rhythm, systolic murmur, diastolic murmur, rubs, gallop - Extremities Exam Extremities exam: Present: normal inspection, full ROM, tenderness, normal capillary refill. Absent: joint swelling - Expanded Upper Extremity Exam Right General: Present: normal inspection Shoulder Exam: Present: normal inspection, full ROM, tenderness. Absent: swelling, abrasion, laceration, ecchymosis, deformity, crepidus, dislocation, erythema, tenderness over AC joint Upper Arm exam: Present: normal inspection, full ROM. Absent: tenderness, swelling Elbow exam: Present: normal inspection, full ROM. Absent: tenderness, swelling Forearm Wrist exam: Present: normal inspection, full ROM. Absent: tenderness, swelling Hand Wrist exam: Present: normal inspection, full ROM. Absent: tenderness, swelling Vascular: Present: vascular compromise, normal capillary refill - Back Exam Back exam: Present: normal inspection, full ROM, paraspinal tenderness (cervical paraspinal). Absent: tenderness, CVA tenderness (R), CVA tenderness (L), muscle spasm, vertebral tenderness, rash noted - Neurological Exam Neurological exam: Present: alert, oriented X3, normal gait - Psychiatric Psychiatric exam: Present: normal affect, normal mood - Skin Skin exam: Present: warm, dry, intact, normal color. Absent: rash ED Course Vital Signs 11/13/19 11/13/19 11/13/19 15:42 16:32 16:33 Temperature 98.6 F Pulse Rate 85 Respiratory 18 15 15 Rate Blood Pressure 106/67 O2 Sat by Pulse 99 Oximetry - Reevaluation(s) Reevaluation #1: 11/13/19 16:59 Patient is speaking in full sentences with no signs of distress noted. ED Medical Decision Making - Medical Decision Making This is a 29-year-old female that presents with right shoulder and cervical muscle strain. Patient is stable and was examined by me. I referred patient to an orthopedic doctor for further evaluation for possible MRI. X-ray of cervical and shoulder has been obtained and dictated by the radiologist unremarkable. Patient is notified of the x-ray report with noted by the patient. Patient received shoulder sling. Patient was instructed to RICE therapy. Patient received [place] for pain and stated that her boyfriend will drive the patient home after discharge due to possible drowsiness. Patient is discharged with Naproxen. At time of discharge, the patient does not seem toxic or ill in appearance. No acute signs of distress noted. Patient agrees to discharge treatment plan of care. No further questions noted by the patient. Critical care attestation.: If time is entered above; I have spent that time in minutes in the direct care of this critically ill patient, excluding procedure time. ED Disposition Clinical Impression: Right shoulder strain Qualifiers: Encounter type: initial encounter Qualified Code(s): S46.911A - Strain of unspecified muscle, fascia and tendon at shoulder and upper arm level, right arm, initial encounter Cervical muscle strain Qualifiers: Encounter type: initial encounter Qualified Code(s): S16.1XXA - Strain of muscle, fascia and tendon at neck level, initial encounter Fall Qualifiers: Encounter type: initial encounter Qualified Code(s): W19.XXXA - Unspecified fall, initial encounter Disposition: TO HOME OR SELFCARE Is pt being admited?: No Does the pt Need Aspirin: No Condition: Stable Instructions: Muscle Strain (ED), Cyclobenzaprine (By mouth) Additional Instructions: Follow-up with your primary care doctor in 3-5 days or if symptoms worsen such as bladder or bowel stability, chest pain, short of breath, numbness or tingling sensation in extremities, headache, dizziness, visual changes, nausea vomiting, or abdominal pain, return back to emergency room as was possible. Take ibuprofen and Flexeril as prescribed. Do not operate heavy machinery while taking Flexeril due to sedation Prescriptions: Cyclobenzaprine [Flexeril] 10 mg PO QHS PRN #10 tablet PRN Reason: Muscle Spasm Naproxen 500 mg PO Q12H PRN #20 tablet PRN Reason: Pain , Severe (7-10) Referrals: PRIMARY CAREMD [Referring] - 3-5 Days RICHARD LEWIS MD [Staff Physician] - 3-5 Days [facility] [Provider Group] - 3-5 Days Forms: Work/School Release Form(ED)
[2019-11-13] MEDS ORDERED: IBUPROFEN 800 MG TAB PO ONE (17:47)
--- NOTE | 2019-11-13 17:49 | XRay Report ---
CERVICAL SPINE 3 VIEWS INDICATION / CLINICAL INFORMATION: neck pain COMPARISON: None available. FINDINGS: BONES / JOINT(S): Satisfactory alignment without vertebral compression. Mild degenerative disc diseas e is localized at C5-C6. SOFT TISSUES: No significant abnormality. ADDITIONAL FINDINGS: None. Signer Name: Hector Dyer MD Signed: 11/13/2019 5:45 PM Workstation Name: [id number]
== END 2019-11-13 18:51 | disposition home or self-care (01) ==
LOC: ED 14:45
DX: S46.911A Strain of unspecified muscle, fascia and tendon at shoulder and upper arm level, right arm, initial encounter (principal); S16.1XXA Strain of muscle, fascia and tendon at neck level, initial encounter; F41.9 Anxiety disorder, unspecified; F32.9 Major depressive disorder, single episode, unspecified; J45.909 Unspecified asthma, uncomplicated; F17.200 Nicotine dependence, unspecified, uncomplicated; Z79.899 Other long term (current) drug therapy; Z98.890 Other specified postprocedural states; Z88.0 Allergy status to penicillin; Z88.8 Allergy status to other drugs, medicaments and biological substances; Z88.2 Allergy status to sulfonamides; W18.30XA Fall on same level, unspecified, initial encounter; Y93.89 Activity, other specified; Y92.89 Other specified places as the place of occurrence of the external cause; Y99.8 Other external cause status
CPT/HCPCS: 72040; 99283